=== PATIENT | female | born 1985 | race Caucasian/White ===

== ENCOUNTER → 2019-04-07 16:50 | Outpatient (BNVA) | payer MEDICARE, MEDICAID, SELFPAY | PROVIDERS: Family Provider Social Worker Clinical; PCP Emergency Medicine; Visit Provider Nurse Practitioner Family | DX: G43.909 Migraine, unspecified, not intractable, without status migrainosus (principal); R30.0 Dysuria; R52 Pain, unspecified | CPT/HCPCS: 81003 ==

== ENCOUNTER → 2019-05-01 15:16 | Outpatient (BNVA) | payer MEDICARE, MEDICAID, SELFPAY | PROVIDERS: Family Provider Social Worker Clinical; PCP Emergency Medicine; Referring Provider Nurse Practitioner Family; Visit Provider Specialist | DX: G43.711 Chronic migraine without aura, intractable, with status migrainosus (principal); F44.5 Conversion disorder with seizures or convulsions | CPT/HCPCS: 99204; 99214 ==

== ENCOUNTER → 2019-07-09 07:30 | Outpatient (BNVA) | payer MEDICARE, MEDICAID, SELFPAY | PROVIDERS: Family Provider Social Worker Clinical; PCP Emergency Medicine; Visit Provider Psychiatry & Neurology Psychiatry | DX: F43.12 Post-traumatic stress disorder, chronic (principal); F51.3 Sleepwalking [somnambulism] | CPT/HCPCS: 99213 ==

== ENCOUNTER → 2019-07-29 10:23 | Outpatient (BNVA) | payer MEDICARE, MEDICAID, SELFPAY | PROVIDERS: Family Provider Social Worker Clinical; PCP Emergency Medicine; Visit Provider Counselor Professional | DX: F43.12 Post-traumatic stress disorder, chronic (principal); F51.3 Sleepwalking [somnambulism] | CPT/HCPCS: 90791 ==

== ENCOUNTER → 2019-08-08 14:22 | Outpatient (BNVA) | payer MEDICARE, MEDICAID, SELFPAY | PROVIDERS: Family Provider Social Worker Clinical; PCP Emergency Medicine; Visit Provider Emergency Medicine | DX: M25.532 Pain in left wrist (principal) | CPT/HCPCS: 73110 ==

== ENCOUNTER → 2019-09-24 07:27 | Outpatient (BNVA) | payer MEDICARE, MEDICAID, SELFPAY | PROVIDERS: Family Provider Social Worker Clinical; PCP Emergency Medicine; Visit Provider Psychiatry & Neurology Psychiatry | DX: F43.12 Post-traumatic stress disorder, chronic (principal); F51.3 Sleepwalking [somnambulism] | CPT/HCPCS: 99213 ==

== ENCOUNTER → 2019-12-05 11:22 | Outpatient (BNVA) | payer MEDICARE, MEDICAID, SELFPAY | PROVIDERS: Family Provider Social Worker Clinical; PCP Emergency Medicine; Visit Provider Nurse Practitioner Family | DX: J06.9 Acute upper respiratory infection, unspecified (principal); Z20.828 Contact with and (suspected) exposure to other viral communicable diseases | CPT/HCPCS: 87635 ==

== ENCOUNTER → 2019-12-10 07:43 | Outpatient (BNVA) | payer MEDICARE, MEDICAID, SELFPAY | PROVIDERS: Family Provider Social Worker Clinical; PCP Emergency Medicine; Visit Provider Psychiatry & Neurology Psychiatry | DX: F43.12 Post-traumatic stress disorder, chronic (principal); F51.3 Sleepwalking [somnambulism]; Z79.899 Other long term (current) drug therapy; F44.5 Conversion disorder with seizures or convulsions; F50.2 Bulimia nervosa; F32.9 Major depressive disorder, single episode, unspecified | CPT/HCPCS: 90792 ==

== ENCOUNTER → 2019-12-17 12:53 | Outpatient (BNVA) | payer MEDICARE, MEDICAID, SELFPAY | PROVIDERS: Family Provider Social Worker Clinical; PCP Emergency Medicine; Visit Provider Psychiatry & Neurology Psychiatry | DX: Z79.899 Other long term (current) drug therapy (principal) | CPT/HCPCS: 80061; 83036 ==

== ENCOUNTER → 2019-12-31 07:31 | Outpatient (BNVA) | payer MEDICARE, MEDICAID, SELFPAY ==
[2019-12-23 16:26] VITALS: BP 136/98; BMI 56.1
== END ==
PROVIDERS: Family Provider Social Worker Clinical; PCP Emergency Medicine; Visit Provider Psychiatry & Neurology Psychiatry
DX: F43.12 Post-traumatic stress disorder, chronic (principal); F51.3 Sleepwalking [somnambulism]; Z79.899 Other long term (current) drug therapy; F44.5 Conversion disorder with seizures or convulsions; F50.2 Bulimia nervosa
CPT/HCPCS: 99214

== ENCOUNTER → 2020-01-23 07:16 | Outpatient (BNVA) | payer MEDICARE, MEDICAID, SELFPAY ==
[2019-12-23 16:26] VITALS: BP 136/98; BMI 56.1
== END ==
PROVIDERS: Family Provider Social Worker Clinical; PCP Emergency Medicine; Visit Provider Psychiatry & Neurology Psychiatry
DX: F43.12 Post-traumatic stress disorder, chronic (principal); F51.3 Sleepwalking [somnambulism]; Z79.899 Other long term (current) drug therapy; F44.5 Conversion disorder with seizures or convulsions; F50.2 Bulimia nervosa; F32.9 Major depressive disorder, single episode, unspecified
CPT/HCPCS: 99214

== ENCOUNTER → 2020-03-18 09:25 | Outpatient (BNVA) | payer MEDICARE, MEDICAID, SELFPAY ==
[2019-12-23 16:26] VITALS: BP 136/98; BMI 56.1
== END ==
PROVIDERS: Family Provider Social Worker Clinical; PCP Emergency Medicine; Visit Provider Psychiatry & Neurology Psychiatry
DX: F32.9 Major depressive disorder, single episode, unspecified (principal); F43.12 Post-traumatic stress disorder, chronic; G47.10 Hypersomnia, unspecified; G43.019 Migraine without aura, intractable, without status migrainosus; F50.2 Bulimia nervosa; F44.5 Conversion disorder with seizures or convulsions
CPT/HCPCS: 99215

== ENCOUNTER → 2020-04-24 14:11 | Outpatient (BNVA) | payer MEDICARE, MEDICAID, SELFPAY ==
[2019-12-23 16:26] VITALS: BP 136/98; BMI 56.1
== END ==
PROVIDERS: Family Provider Social Worker Clinical; PCP Emergency Medicine; Visit Provider Nurse Practitioner Family
DX: R39.9 Unspecified symptoms and signs involving the genitourinary system (principal); N39.0 Urinary tract infection, site not specified
CPT/HCPCS: 81000; 87086

== ENCOUNTER 2020-04-27 20:00 | Outpatient (CLI) | payer MEDICARE, MEDICAID, SELFPAY ==
[2019-12-23 16:26] VITALS: BP 136/98; BMI 56.1
== END 2020-04-27 20:01 | disposition home or self-care (01) ==
LOC: SLEEP 04-28 08:32
PROVIDERS: Family Provider Social Worker Clinical; PCP Emergency Medicine; Visit Provider Psychiatry & Neurology Psychiatry
DX: G47.10 Hypersomnia, unspecified (principal); R06.83 Snoring; G47.33 Obstructive sleep apnea (adult) (pediatric)
CPT/HCPCS: 95810

== ENCOUNTER → 2020-05-13 07:58 | Outpatient (BNVA) | payer MEDICARE, MEDICAID, SELFPAY ==
[2019-12-23 16:26] VITALS: BP 136/98; BMI 56.1
== END ==
PROVIDERS: Family Provider Social Worker Clinical; PCP Emergency Medicine; Visit Provider Psychiatry & Neurology Psychiatry
DX: F43.12 Post-traumatic stress disorder, chronic (principal); F51.3 Sleepwalking [somnambulism]; F32.9 Major depressive disorder, single episode, unspecified; F50.2 Bulimia nervosa; F44.5 Conversion disorder with seizures or convulsions
CPT/HCPCS: 99215

== ENCOUNTER → 2020-06-10 08:12 | Outpatient (BNVA) | payer MEDICARE, MEDICAID, SELFPAY ==
[2019-12-23 16:26] VITALS: BP 136/98; BMI 56.1
== END ==
PROVIDERS: Family Provider Social Worker Clinical; PCP Emergency Medicine; Visit Provider Psychiatry & Neurology Psychiatry
DX: F32.9 Major depressive disorder, single episode, unspecified (principal); F43.12 Post-traumatic stress disorder, chronic; F51.3 Sleepwalking [somnambulism]; F50.2 Bulimia nervosa; G47.33 Obstructive sleep apnea (adult) (pediatric); F44.5 Conversion disorder with seizures or convulsions
CPT/HCPCS: 99214

== ENCOUNTER → 2020-06-11 11:01 | Outpatient (BNVA) | payer MEDICARE, MEDICAID, SELFPAY ==
[2019-12-23 16:26] VITALS: BP 136/98; BMI 56.1
== END ==
PROVIDERS: Family Provider Social Worker Clinical; PCP Emergency Medicine; Visit Provider Nurse Practitioner Family
DX: Z20.822 Contact with and (suspected) exposure to COVID-19 (principal)
CPT/HCPCS: 87635

== ENCOUNTER → 2020-08-03 07:25 | Outpatient (BNVA) | payer MEDICARE, MEDICAID, SELFPAY ==
[2019-12-23 16:26] VITALS: BP 136/98; BMI 56.1
== END ==
PROVIDERS: Family Provider Social Worker Clinical; PCP Emergency Medicine; Visit Provider Psychiatry & Neurology Psychiatry
DX: F43.12 Post-traumatic stress disorder, chronic (principal); F44.5 Conversion disorder with seizures or convulsions; F51.3 Sleepwalking [somnambulism]; F32.9 Major depressive disorder, single episode, unspecified; G47.33 Obstructive sleep apnea (adult) (pediatric); F50.2 Bulimia nervosa
CPT/HCPCS: 99214

== ENCOUNTER → 2020-11-22 09:44 | Outpatient (BNVA) | payer MEDICARE, MEDICAID, SELFPAY ==
[2019-12-23 16:26] VITALS: BP 136/98; BMI 56.1
== END ==
PROVIDERS: Family Provider Social Worker Clinical; PCP Emergency Medicine; Visit Provider Nurse Practitioner Family
DX: Z20.822 Contact with and (suspected) exposure to COVID-19 (principal); R30.0 Dysuria
CPT/HCPCS: 87635

== ENCOUNTER 2020-11-27 10:44 | Inpatient (IN) | payer MEDICARE, MEDICAID, SELFPAY ==
[2019-12-23 16:26] VITALS: BP 136/98; BMI 56.1
[2020-11-27] VITALS (46 sets, daily range): BP systolic 96–133; BP diastolic 62–96; PULSE 66–109; RESP 17–65; TEMP 36.7–37.1; O2SAT 89–97; BMI 52.4
--- NOTE | 2020-11-27 11:06 | ECG_ITS ---
[facility] Test Date: 2020-11-27 Pat Name: Verito Harmon Department: Room: Gender: Female Clinical Applications Specialist: : 1985 Requested By: Yinka Ramires Order Number: [id number] Malu MD: David Chavez M.D. Measurements Intervals [place] Rate: 97 P: 55 AL: 132 QRS: 6 QRSD: 86 T: 4 QT: 308 QTc: 393 Interpretive Statements SINUS RHYTHM No previous ECG available for comparison Electronically Signed On 11-27-2020 20:59:05 CDT by David Chavez M.D. [id number]
--- NOTE | 2020-11-27 11:06 | XRR_ITS ---
PROCEDURE INFORMATION: Exam: XR Chest Exam date and time: 11/27/2020 11:06 AM Age: 35 years old Clinical indication: Device placement; Other: Et and ng; Additional info: Dyspnea TECHNIQUE: Imaging protocol: XR of the chest. Views: 1 view. Total images: 1 COMPARISON: No relevant prior studies available. FINDINGS: Tubes, catheters and devices: An endotracheal tube is present, terminating above the ileana by 3.5 cm. Enteric tube is seen with the tip in the body of the stomach. Lungs: Bilateral patchy airspace densities, favoring pneumonia, possibly atypical pneumonia. Pleural spaces: Unremarkable. No pleural effusion. No pneumothorax. Heart/Mediastinum: Unremarkable. No cardiomegaly. Bones/joints: Unremarkable. XR/XR chest 1V portable [id number] IMPRESSION: 1. An endotracheal tube is present, terminating above the ileana by 3.5 cm. 2. Enteric tube is seen with the tip in the body of the stomach. 3. Bilateral patchy airspace densities, favoring pneumonia, possibly atypical pneumonia.
[2020-11-27] MEDS: dexamethasone 4 mg/mL INJ 6 MG IVP (11:30)
[2020-11-27 11:32] LABS: ABG PCO2 33.1 mmHg (35-45); ABG PH Result 7.43 (7.35-7.45); Arterial Blood Gas Hematocrit 44.2 % (37-47); Base Excess ABG -1.7 mmol/L (-2.0-2.0); Blood Gas Allen Test Pos; Blood Gas Operator Identificat MONRO; Blood Gas Sample Site Radial, left; Blood Gas Sample Type Arterial; HCO3 ABG 21.9 mmol/L (22-26); Oxygen Device NRB; PO2 ABG 58.9 mmHg (80.0-100.0)
--- NOTE | 2020-11-27 11:54 | W.ED.COVID ---
HPI - COVID General: Chief Complaint: Shortness of Breath/Dyspnea Stated Complaint: RESP DISTRESS Time Seen by Provider: 11/27/20 10:45 Triage information: Has fever, cough or shortness of breath. Exposure to COVID + person last 14 days History of Present Illness: HPI Narrative: 35-year-old female tested positive for Covid 5 days ago comes in complaining of severe respiratory distress, she began having symptoms 10 days ago.. She called EMS complaint of shortness of breath on their arrival there she was 68% on room air she was placed on nonrebreather at 10 L/min was in the 90% range. On arrival here she was tachypneic. Put her on a heated high flow and are able to get her oxygen levels up to the mid 90s and her respiratory rate decreased however sharp shortly after that her oxygen saturations decreased again to the mid low 80s she was switched to a BiPAP. As an outpatient she had initially been seen by [facility] or the primary care clinics and started on Zithromax and dexamethasone. complaint: known COVID positive Prior covid testing: yes, results known Prior testing date: 11/22/20 COVID 19 common symptoms: positive fever(s), chills, cough, non-productive cough, productive cough, dyspnea, body aches, nasal congestion, nausea, vomiting and diarrhea COVID 19 other sytmptoms: positive requiring oxygen and respiratory distress; negative chest pain Onset (ago): day(s) Severity: severe and rapidly worsening Pertinent comorbid conditions: hypertension and obesity Treatment prior to arrival: none COVID Results: SARS-CoV-2 RNA (RT-PCR) Detected (NOT DETECTED) A 11/22/20 09:44 11/22/20 Review of Systems Const: Reports: fever(s), chills and body aches ENMT: Reports: nasal congestion Card: Reports: dyspnea on exertion; Denies: chest pain, edema or orthopnea Resp: Reports: dyspnea, productive cough and non-productive cough GI: Reports: nausea, vomiting and diarrhea : Denies: flank pain, difficulty voiding, dysuria, urinary frequency or urinary urgency Skin/Breast: Denies: rash or pruritus PFS ED PFSH: Medical History Bulimia nervosa in remission Chronic migraine without aura, intractable, with status migrainosus Common migraine with intractable migraine Excoriation (skin-picking) disorder Functional neurological symptom disorder with attacks or seizures Hypersomnia Major depressive disorder Migraine Obstructive sleep apnea Other jail (current) drug therapy Post-traumatic stress disorder, chronic Psychiatric care Sleepwalking disorder Suspected COVID-19 virus infection Viral URI with cough Surgical History H/O tubal ligation History of kidney surgery Family History Other CAD (coronary artery disease) Diabetes Hypertension Denies family history of Cancer Stroke Social History Smoking and tobacco status: never smoked Alcohol intake: current Alcohol intake frequency: few times a month Desire information about substance/drug rehabilitation?: No History of recent travel: No Current gender identity: Female Female Reproductive History: Spontaneous abortions: No Physical Exam Const: GENERAL APPEARANCE: cooperative ORIENTATION/CONSCIOUSNESS: Yes awake, Yes oriented to person, Yes oriented to place and Yes oriented to time HENMT: COMMON NORMALS: normocephalic, atraumatic and hearing grossly normal bilaterally HEAD & SCALP: normocephalic and atraumatic Neck/C-Spine: COMMON NORMALS: no JVD Resp: AUSCULTATION: crackles, wheezes and diminished lung sounds Cardio: COMMON NORMALS: no JVD, regular rate, regular rhythm and No murmurs present (Cardio) RATE: regular rate RHYTHM: regular rhythm GI: COMMON NORMALS: Soft to palpation and No hepatosplenomegaly present AUSCULTATION: Yes normoactive bowel sounds PALPATION: Yes Soft to palpation, No Tenderness to palpation present (GI), No Guarding due to palpation present (GI) and Yes No hepatosplenomegaly present Extremity: COMMON NORMALS: normal to inspection, capillary refill normal, no clubbing, cyanosis or edema, no calf tenderness and no pedal edema Neuro: SENSORIUM/ORIENTATION: Yes oriented to person, Yes oriented to place and Yes oriented to time Skin: COMMON NORMALS: no rashes or lesions noted GENERAL SKIN EXAM: no rashes or lesions noted Procedures Central Line Placement Left IJ: Time Out Performed: Yes Patient Placed on Monitor/Pulse Ox: Yes MD Prep: mask, gown and gloves Central Line Prep: Chlorhexidine scrub and sterile drapes applied Ultrasound Used for Placement: Yes Central Line Lumen Inserted: triple Post Procedure: sutured in place, good blood return, all ports aspirated, flushed, capped and sterile dressing applied Post Procedure X-Ray: tip of catheter in good position and no pneumothorax seen Patient Tolerated Procedure: well and no complications Complications: none Intubation Time out performed: Yes sedative: Etomidate Mg Given: 20 paralytic: Succinylcholine Mg Given: 120 Laryngoscope: fiber optic video scope Assist Device Used: fiber optic device ET Tube Size: 8.5 ET Tube Uncuffed: No Tube Secured Depth (cm): 22 Tube Secured Location: teeth Tube Placement Confirmation: visualized tube passing through cords, equal breath sounds bilaterally, no breath sounds over epigastrium and confirmation by capnometry Patient Tolerated Procedure: well Intubation Complications: none Additional Comments: Initially there is a mild complication with getting events set up patient was successfully maintained on [id number] during that time in which she tolerated very well. We were able to correct the issue of the ventilator and transition to the vent with no complications. Course Vital Signs: Vital signs: Vital Signs Temperature 98.1 F 11/27/20 10:50 Pulse Rate 87 11/27/20 15:45 Respiratory Rate 20 H 11/27/20 15:45 Blood Pressure 129/80 11/27/20 15:45 Pulse Oximetry 97 11/27/20 15:45 MDM - COVID MDM Narrative: Medical decision making narrative: Patient rapidly deteriorated see above will transition from my she heated high flow to BiPAP her respiratory rate increased into the upper 70s and she was intubated she still was conscious enough we discussed with her prior to intubating she expressed understanding and was okay with being intubated. Discussed with hospitalist reviewed case orders written. Lab Data: Labs: Lab Results 11/27/20 11/27/20 11/27/20 11:20 12:12 12:12 WBC 8.8 10^3/uL 10^3/ uL (4.0-10.0) RBC 4.96 10^6/uL 10^6 /uL (4.1-5.3) Hgb 14.6 g/dL g/dL (11.5-15.3) Hct 45.4 % % (37.0-47.0) MCV 91.5 fl fl (81-99) MCH 29.4 pg pg (28.0-34.0) MCHC 32.2 g/dL g/dL (30.0-36.0) RDW 13.5 % % (12.1-15.1) Plt Count 242 10^3/cmm 10^3 /cmm (130-400) MPV 10.4 fL fL (7.4-10.4) Neut % (Auto) 83.1 % % Lymph % (Auto) 12.7 % % [place] % (Auto) 3.9 % % Eos % (Auto) 0.0 % % Baso % (Auto) 0.1 % % Neut # (Auto) 7.34 10^3/uL 10^3 /uL (1.8-7.7) Lymph # (Auto) 1.1 10^3/uL 10^3/ uL (0.8-4.8) [place] # (Auto) 0.3 10^3/uL 10^3/ uL (0.2-0.9) Eos # (Auto) 0.0 10^3/uL 10^3/ uL (0.0-0.8) Baso # (Auto) 0.0 10^3/uL 10^3/ uL (0.0-0.1) Nucleated RBC % (a uto) 0 % % Nucleated RBCs # 0.0 /100WBC /100W BC Specimen Type Arterial Sample Site Radial, left ABG pH 7.43 (7.35-7.45) ABG pCO2 33.1 mmHg L mmHg (35-45) ABG pO2 58.9 mmHg L mmHg (80.0-100.0) ABG HCO3 21.9 mmol/L L mmo l/L (22-26) ABG O2 Saturation ABG Base Excess -1.7 mmol/L mmol/ L (-2.0-2.0) Mj Test Pos A-a O2 Gradient Hematocrit 44.2 % % (37-47) Hgb O2 Saturation Carboxyhemoglobin Methemoglobin Total Hemoglobin Ionized Calcium O2 Delivery Device Nrb O2 Liters/Min 15.0 % % Mechanical Rate FiO2 100.0 % % Tidal Volume PEEP Dry Chain Operator ID [place] Sodium Cancelled Potassium Cancelled Chloride Cancelled Carbon Dioxide Cancelled Anion Gap Cancelled BUN Cancelled Creatinine Cancelled GFR Calculation Cancelled Glucose Cancelled Calculated Osmolal ity Cancelled Lactic Acid Calcium Cancelled Total Bilirubin Cancelled AST Cancelled ALT Cancelled Alkaline Phosphata se Cancelled C-Reactive Protein Cancelled Total Protein Cancelled Albumin Cancelled Globulin Cancelled Procalcitonin Cancelled Urine Color Urine Appearance Urine pH Ur Specific Gravit y Urine Protein Urine Glucose (UA) Urine Ketones Urine Blood Urine Nitrate Urine Bilirubin Urine Urobilinogen Ur Leukocyte Vandana ase Urine RBC Urine WBC Ur Squamous Epith Cells Amorphous Sediment Urine Bacteria Urine Mucus 11/27/20 11/27/20 11/27/20 12:12 13:21 13:28 WBC RBC Hgb Hct MCV MCH MCHC RDW Plt Count MPV Neut % (Auto) Lymph % (Auto) [place] % (Auto) Eos % (Auto) Baso % (Auto) Neut # (Auto) Lymph # (Auto) [place] # (Auto) Eos # (Auto) Baso # (Auto) Nucleated RBC % (a uto) Nucleated RBCs # Specimen Type Arterial Sample Site Radial, left ABG pH 7.36 (7.35-7.45) ABG pCO2 39.2 mmHg mmHg (35-45) ABG pO2 55.4 mmHg L mmHg (80.0-100.0) ABG HCO3 22.3 mmol/L mmol/ L (22-26) ABG O2 Saturation 90.3 ABG Base Excess -2.8 mmol/L L mmo l/L (-2.0-2.0) Mj Test Pos A-a O2 Gradient 79.5 mmHg H mmHg (5-10) Hematocrit 46.4 % % (37-47) Hgb O2 Saturation 89.1 % L % (95-100) Carboxyhemoglobin 0.7 %THgb %THgb (0.4-20.1) Methemoglobin 0.7 % % (0.4-1.5) Total Hemoglobin 15.1 g/dL g/dL (12-16) Ionized Calcium 1.2 mmol/L mmol/L (1.1-1.4) O2 Delivery Device Vent O2 Liters/Min Mechanical Rate 18.0 FiO2 100.0 % % Tidal Volume 0.35 PEEP 8.0 cmH20 cmH20 Dry Chain Operator ID Gd Sodium 144.0 mmol/L H mm ol/L (131-143) Potassium 3.8 mmol/L mmol/L (3.5-5.0) Chloride Carbon Dioxide Anion Gap BUN Creatinine GFR Calculation Glucose 112.0 mg/dL mg/dL (70-115) Calculated Osmolal ity Lactic Acid Cancelled Calcium Total Bilirubin AST ALT Alkaline Phosphata se C-Reactive Protein Total Protein Albumin Globulin Procalcitonin Urine Color Yellow (Yellow) Urine Appearance Clear (CLEAR) Urine pH 6 (5-7) Ur Specific Gravit y 1.010 (1.005-1.030) Urine Protein 1+ H (Negative) Urine Glucose (UA) Norm (Normal) Urine Ketones Negative (Negative) Urine Blood Neg (Negative) Urine Nitrate Negative (Negative) Urine Bilirubin Neg (Negative) Urine Urobilinogen 1 mg/dL H mg/dL (Negative) Ur Leukocyte Vandana ase Negative (Negative) Urine RBC None /hpf /hpf (0-2) Urine WBC None /hpf /hpf (0-5) Ur Squamous Epith Cells 0-4 /hpf H /hpf (0-5) Amorphous Sediment Not Reportable Urine Bacteria Trace /hpf /hpf (NONE) Urine Mucus 1+ /hpf /hpf COVID Results: SARS-CoV-2 RNA (RT-PCR) Detected (NOT DETECTED) A 11/22/20 09:44 11/22/20 Critical Care Time Critical Care Time: Critical Care Time: Yes Total Critical Care Time: 20 Attestation: This case had a high probability of a clinically significant, sudden, or life threatening deterioration of this patient's condition which required my full and direct attention, intervention and personal management. Procedures billed separately. Critical care time included initial assessment and reassessment evaluation of labs and imaging discussion with hospitalist and ongoing management of sedation in the emergency room. Discharge Plan Discharge Patient Disposition: Admitted As Inpatient Admit Provider: Sara Oh Coding Level of Care Code ED Lcac Radar Operator/Navigator for g Fwd Exam Comprehensive
--- NOTE | 2020-11-27 12:00 | ECG_ITS ---
[facility] Test Date: 2020-11-27 Pat Name: Verito Harmon Department: Room: [facility] Gender: Female Laundry Route Driver: : 1985 Requested By: Yinka Ramires Order Number: [id number] Malu MD: David Chavez M.D. Measurements Intervals [place] Rate: 104 P: 136 AK: 118 QRS: -3 QRSD: 89 T: -18 QT: 321 QTc: 423 Interpretive Statements ECTOPIC ATRIAL TACHYCARDIA WITH SHORT AK INTERVAL LEFT ATRIAL ENLARGEMENT [-0.15mV P-WAVE IN V1/V2] LOW QRS VOLTAGE IN PRECORDIAL LEADS [QRS DEFLECTION < 1.0 mV IN CHEST LEADS] PATTERN CONSISTENT WITH PULMONARY DISEASE POSSIBLE INFERIOR MYOCARDIAL INFARCTION , OF INDETERMINATE AGE [30 ms Q WAVE IN II/aVF] Compared to ECG 11/27/2020 11:42:13 Short AK interval now present Atrial abnormality now present Low QRS voltage now present Myocardial infarct finding now present Sinus rhythm no longer present Electronically Signed On 11-27-2020 21:13:13 CDT by David Chavez M.D. [id number]
[2020-11-27 12:18] LABS: Basophils % 0.1 %; Hematocrit 45.4 % (37.0-47.0); Hemoglobin 14.6 g/dL (11.5-15.3); Lymphocytes # 1.1 10^3/uL (0.8-4.8); Lymphocytes % 12.7 %; Mean Corpuscular HGB Conc 32.2 g/dL (30.0-36.0); Mean Corpuscular Hemoglobin 29.4 pg (28.0-34.0); Mean Corpuscular Volume 91.5 fl (81-99); Mean Platelet Volume 10.4 fL (7.4-10.4); Monocytes # 0.3 10^3/uL (0.2-0.9); Monocytes % 3.9 %; Neutrophils # 7.34 10^3/uL (1.8-7.7); Neutrophils % 83.1 %; Nucleated Red Blood Cells % 0 %; Platelet Count 242 10^3/cmm (130-400); Red Blood Count 4.96 10^6/uL (4.1-5.3); Red Cell Distribution Width 13.5 % (12.1-15.1); White Blood Count 8.8 10^3/uL (4.0-10.0)
--- NOTE | 2020-11-27 13:33 | PM.HP ---
Providers/Chief Complaint Primary Care Provider: LUCAS Tristan Chief Complaint: RESP DISTRESS History of Present Illness Verito Harmon is a 35 year old female who tested positive with Covid PCR on 11/22 presented today for worsening of her respiratory distress. I have tried to get in touch with the family, tried multiple numbers however it is going straight to voicemail. No one has called the ER as well. Most of the information has been taken from collaterals. Patient symptoms started 10 days ago with shortness of breath and fever and she tested 5 days ago. Today EMS was called for worsening of shortness of breath. When EMS arrived she was saturating 68% on room air, she does have history of sleep apnea, she was put on 10 L oxygen mask, she was transitioned up to heated high flow and then BiPAP to decrease work of breathing however secondary to tachypnea she was intubated in the ER, Secondary to her BMI not an ECMO candidate when I discussed transfer to [facility], will admit to ICU start proning, She is on FiO2 100% saturating 92% PaO2 around 50 Dr[address] to [address] left IJ, white count 8.8, D-dimer is pending, procalcitonin, BMP is pending Review of Systems General: Reports: ROS unobtainable due to endotracheal tube Medications/Allergies Home Medications Medication Instructions Recorded Confirmed Last Taken Type clonazepam 1 mg tablet 1 mg PO BID #60 tab 08/03/20 11/27/20 Unknown Rx vilazodone 40 mg tablet 40 mg PO DAILY #30 tab 08/03/20 11/27/20 Unknown Rx dextromethorphan-guaifenesin 10 15 ml PO BID PRN 11/22/20 11/27/20 Unknown History mg-200 mg/15 mL oral liquid azithromycin 250 mg tablet See Rx Instructions PO .COMPLEX #6 11/24/20 11/27/20 Unknown Rx tab dexamethasone 2 mg tablet 6 mg PO DAILY 8 Days #24 tab 11/24/20 11/27/20 Unknown Rx Allergies Allergy/AdvReac Type Severity Reaction Status Date / Time benzonatate Allergy unknown Verified 11/22/20 09:36 [From Tessalon Perles] prochlorperazine Allergy unknown Verified 11/22/20 09:36 [From Compazine] amoxicillin [From Augmentin] AdvReac unknown Verified 11/22/20 09:36 clavulanic acid AdvReac unknown Verified 11/22/20 09:36 [From Augmentin] PFSH Acute PFSH: Medical History Bulimia nervosa in remission Chronic migraine without aura, intractable, with status migrainosus Common migraine with intractable migraine Excoriation (skin-picking) disorder Functional neurological symptom disorder with attacks or seizures Hypersomnia Major depressive disorder Migraine Obstructive sleep apnea Other termite exterminator helper (current) drug therapy Post-traumatic stress disorder, chronic Psychiatric care Sleepwalking disorder Suspected COVID-19 virus infection Viral URI with cough Surgical History H/O tubal ligation History of kidney surgery Family History Other CAD (coronary artery disease) Diabetes Hypertension Denies family history of Cancer Stroke Social History Smoking and tobacco status: never smoked Alcohol intake: current Alcohol intake frequency: few times a month Desire information about substance/drug rehabilitation?: No History of recent travel: No Current gender identity: Female Female Reproductive History: Spontaneous abortions: No Vitals/I&O/Wt Last Vital Signs Temp 98.1 F 11/27/20 10:50 Pulse 99 11/27/20 11:57 Resp 24 H 11/27/20 13:00 BP 109/78 11/27/20 10:50 Pulse Ox 90 11/27/20 13:00 Weight last 48 hrs Weight 130.181 kg Physical Exam Narrative: EXAM NARRATIVE: Morbidly obese female Intubated and sedated ET tube size 8 secured at 24 cm teeth bite ER physician was placing left IJ in Trendelenburg position No active signs of congestive heart failure Multiple skin tattoos Assisted bilateral breath sounds Hemodynamically stable saturating 89 to 90% Lower extremity no edema Distended abdomen visceral obesity Neuro exam limited Data : 11/27/20 12:12 11/27/20 14:11 A&P Assessment and plan (1) COVID-19: Status: Acute (2) Hypoxia: Status: Acute (3) ARDS (adult respiratory distress syndrome): Status: Acute (4) Obesity: Status: Acute Additional A&P Information Acute hypoxia requiring mechanical ventilation for COVID-19 pneumonia P to F ratio 50, meets criteria for severe ARDS Morbid obesity Most of the labs are pending from the ER She does have underlying sleep apnea as well Intubated and sedated Start proning, will do at least 4 cycles to see if she is responsive will request blood gas before and after proning for her 8 hours of supine session requested dietary consult for tube feeding I will keep her on Lasix to keep her in negative balance Start Nimbex I would cover her empirically for DVT and PE with Lovenox Start remdesivir, Decadron, baricitinib Has tried multiple times to get in touch with the family, it is going straight to voicemail, no one has called the hospital as well Admit to ICU Not a candidate of ECMO because of high BMI No education and training coordinator coverage over the weekend, Dr. Nash is coming on Sunday We will do echo to know more about her right ventricular ejection fraction Full code Start tube feed DVT prophylaxis start therapeutic regimen of Lovenox Attestations Medical Necessity Statement*: Anticipating stay in the hospital cross more than 2 midnights Time Spent in Patient Care: Greater than 35 minutes Coding Level of Care Code Acute Diesel Inspector for Sarag Fwd Diagnoses COVID-19 U07.1 Hypoxia R09.02 ARDS (adult respiratory distress syndrome) J80 Obesity E66.9
[2020-11-27 13:44] LABS: ABG PCO2 39.2 mmHg (35-45); ABG PH Result 7.36 (7.35-7.45); Arterial Blood Gas Hematocrit 46.4 % (37-47); Base Excess ABG -2.8 mmol/L (-2.0-2.0); Blood Gas Allen Test Pos; Blood Gas Sample Type Arterial; Carboxyhemoglobin 0.7 %THgb (0.4-20.1); HCO3 ABG 22.3 mmol/L (22-26); HGB O2 Sat 89.1 % (95-100); Ionized Calcium Level - ABG 1.2 mmol/L (1.1-1.4); Methemoglobin 0.7 % (0.4-1.5); Oxygen Saturation ABG 90.3; PO2 ABG 55.4 mmHg (80.0-100.0); Potassium Level - ABG 3.8 mmol/L (3.5-5.0); Total Hemoglobin 15.1 g/dL (12-16)
[2020-11-27 13:46] LABS: Alveolar-Arterial Oxygen Gradi 79.5 mmHg (5-10); Blood Gas Operator Identificat GD; Blood Gas Sample Site Radial, left; Blood Gas Tidal Volume 0.35; Oxygen Device VENT
[2020-11-27] MEDS: propofol 1,000 MG/100 ML INJ 3.91 MG IV (14:03)
--- NOTE | 2020-11-27 14:21 | PC.NURSE ---
1220 Pt moved from 8 to room 11 for intubation after failed bipap 1225 IV placed by ANDREW Jaimes at L AC 1231 RT at bedside for prep for intubation provider at bedside RNx2 1231 Etomidate 20mg given and Succ 120mg given to L AC by ANDREW Connolly drawn up by LES, RN 1232 ET placed 8Fr at 22 at LIp and confirmed by change in color and bilateral breast sounds with XRay order for confirmation HR 123, SP02 99% with BP 180/125. Pt fighting the tube and tearing noted. 1235 Provider notified of pt's pulling on tube and tearing. Received order for Propofol 100mg and Vercuronium 10mg given by ANDREW Jaimes mixed and drawn up by LES, rn 1240 Received order for 2nd dose of Propofol 100mg given by Fiona, ANDREW 1242 Pt appears to be resting and sp02 90-91% improved 1245 IV gtt started see MAR Fentanyl and Versed. 1250 2nd IV started to left hand 20g 1300 Verbal order to start Propofol for pulling on ET RT at bedside. Temporary restraints placed till medication Propofol gtt started. RT at bedside noted SP02 change 89-90% and pt pulling on tube. notified provider of change pt tearing 1400 CL placed by provider Propofol gtt started
[2020-11-27] MEDS: propofol 1,000 MG/100 ML INJ 11.72 MG IV (14:40)
[2020-11-27 14:42] LABS: Lactic Sepsis W/Reflex 1.1 mmol/L (0.5-2.2)
--- NOTE | 2020-11-27 14:45 | PC.NURSE ---
Verbal order received for medication for Central line placement 1340 Versed rate change to 6mg/hr 1347 Fentanyl rate change to 10mcg/ml 1410 Propofol bolus given 100 mcg over 3 minutes with rate change after bolus 1415 Propofol rate changed to 15 mcg/kg/min CL placed. XRay called for placement check 1445 Propofol bolus given 100mcg over 3 minutes with rate change after bolus 1450 Propofol rate change to 25 mcg/kg/min with rate 19.5ml/hr
[2020-11-27 14:53] LABS: NT Pro B Type Natriuretic Pept 198 pg/mL (0-125); Procalcitonin 0.09 ng/mL (0-0.5)
--- NOTE | 2020-11-27 14:54 | XRR_ITS ---
PROCEDURE INFORMATION: Exam: XR Chest Exam date and time: 11/27/2020 2:54 PM Age: 35 years old Clinical indication: Device placement; Other: Central line placement TECHNIQUE: Imaging protocol: XR of the chest. Views: 1 view. COMPARISON: CR (CHEST, ) 11/27/2020 12:34 PM FINDINGS: Tubes, catheters and devices: There is an enteric tube, the tip of the enteric tube is not included in the image. However, the tube is seen extending into the stomach. There is an endotracheal tube with the tip 3.5 cm above the ileana. Interval placement of a left internal jugular central line with the tip in the lower right atrium. Lungs: Diffuse, mild interstitial alveolar opacities are stable. There is mild improvement of alveolar airspace disease in the right upper lobe and left lower lobe however, suggesting partial resolution of atelectasis or pneumonia. Pleural spaces: No pleural effusion. No pneumothorax. Heart/Mediastinum: Stable mild enlargement of the cardiac silhouette. Mediastinal contours are unremarkable. Bones/joints: Unremarkable for age. XR/XR chest 1V portable [id number] IMPRESSION: 1. Diffuse, mild interstitial alveolar opacities are stable. There is mild improvement of alveolar airspace disease in the right upper lobe and left lower lobe however, suggesting partial resolution of atelectasis or pneumonia. Recommend clinical correlation. Recommend followup chest x-ray to ensure resolution. 2. Interval placement of a left internal jugular central line with the tip in the lower right atrium. 3. Incidental/nonacute findings are listed in the report.
[2020-11-27 15:04] LABS: Alanine Aminotransferase 35 U/L (0-33); Albumin Level 3.2 g/dL (3.5-5.2); Alkaline Phosphatase 46 IU/L (35-105); Blood Urea Nitrogen 10 mg/dL (6-20); C Reactive Protein 61.5 mg/L (0.0-4.9); Calcium 8.3 mg/dL (8.5-10.5); Carbon Dioxide 17 mmol/L (22-29); Chloride 105 mmol/L (98-107); Globulin 4.1 g/dL (1.3-4.6); Glomerular Filtration Rate 81.2 mL/min (90-130); Glucose 109 mg/dL (65-115); Osmolality Calculated 282 mOsm/kg (285-295); Sodium 136 mmol/L (136-145); Total Bilirubin 0.7 mg/dL (0.15-1.2); Total Protein 7.3 g/dL (6.6-8.7)
[2020-11-27 15:09] LABS: Aspartate Amino Transferase 59 U/L (0-32)
[2020-11-27 15:47] LABS: Add Urine Microscopic? YES; Bilirubin Urine Neg (Negative); Blood Urine Neg (Negative); Glucose Urine UA Norm (Normal); Ketones Urine Negative (Negative); Leukocyte Esterase Urine Negative (Negative); Nitrate Urine Negative (Negative); Protein Urine 1+ (Negative); Urine Appearance Clear (CLEAR); Urine Color Yellow (Yellow); Urobilinogen Urine 1 mg/dL (Negative); pH Urine 6 (5-7)
[2020-11-27 15:48] LABS: Bacteria Urine TRACE /hpf; Squamous Epithelial Cell Urine 0-4 /hpf (0-5)
[2020-11-27 15:49] LABS: Add Urine Culture? No; Mucus Urine 1+ /hpf
--- NOTE | 2020-11-27 15:58 | PC.NURSE ---
Report to ANDREW Fowler
--- NOTE | 2020-11-27 17:15 | PC.NURSE ---
Dr Oh notified: Pt's mother and daughter here. Pt has a BMI of 52, proning for BMI over [address] Sky'd not proning.
--- NOTE | 2020-11-27 17:22 | CTR_ITS ---
PROCEDURE INFORMATION: Exam: CTA Chest With Contrast Exam date and time: 11/27/2020 5:22 PM Age: 35 years old Clinical indication: Shortness of breath; Patient HX: Covid, resp failure, PT intubated. ; Additional info: Covid/resp failure TECHNIQUE: Imaging protocol: Computed tomographic angiography of the chest with contrast. 3D rendering (Not supervised by radiologist): MIP and/or 3D reconstructed images were created by the technologist. Radiation optimization: All CT scans at this facility use at least one of these dose optimization techniques: automated exposure control; mA and/or kV adjustment per patient size (includes targeted exams where dose is matched to clinical indication); or iterative reconstruction. Contrast material: OMNI 350; Contrast volume: 56 ml; Contrast route: INTRAVENOUS (IV); COMPARISON: CR (CHEST, ) 11/27/2020 3:01 PM RADIATION DOSE METRICS: Total DLP (mGy-cm): 520.49 FINDINGS: Limitations: Streak artifact from the patient's arms which can limit evaluation. Tubes, catheters and devices: There is an endotracheal tube with the tip 3.4 cm above the ileana. There is an enteric tube with the tip in the body of the stomach. Left internal jugular central line with the tip in the lower right atrium. Pulmonary arteries: No filling defects in the pulmonary arteries to suggest pulmonary embolism. Aorta: No evidence for aortic aneurysm or aortic dissection. Lungs: Tracheobronchial structures are patent. Multiple, bilateral areas of ground-glass opacification and crazy paving in the lungs bilaterally. Findings are consistent with COVID-19 pneumonia. Alveolar airspace disease with air bronchograms in the upper and lower lobes bilaterally as well, superimposed bacterial pneumonia cannot be ruled out. No pulmonary parenchymal nodules or masses. Pleural spaces: No pneumothorax. No pleural effusion. Heart: Mild enlargement of the heart. Mediastinal space: The esophagus is unremarkable. No mediastinal hematoma. No pneumomediastinum. Lymph nodes: No lymphadenopathy. Liver: Diffuse, moderately decreased density in the visualized liver. Findings are consistent with moderate fatty infiltration. Gallbladder and bile ducts: The visualized gallbladder is unremarkable. No dilatation of the visualized bile ducts. Pancreas: The visualized pancreas is unremarkable. No pancreatic ductal dilatation. Spleen: The visualized spleen is unremarkable. Adrenal glands: The right adrenal gland is unremarkable. The visualized left adrenal gland is unremarkable. Kidneys and ureters: The visualized right and left kidneys are unremarkable. Bones/joints: No acute fracture. No dislocation. Soft tissues: No acute abnormality in the extrathoracic soft tissues. CT/CT angio chest PE protcl [id number] IMPRESSION: 1. Multiple, bilateral areas of ground-glass opacification and crazy paving in the lungs bilaterally. Findings are consistent with COVID-19 pneumonia. Alveolar airspace disease with air bronchograms in the upper and lower lobes bilaterally as well, superimposed bacterial pneumonia cannot be ruled out. Recommend clinical correlation. Recommend followup chest imaging to insure resolution of these findings. 2. No evidence for pulmonary embolism. 3. Mild cardiomegaly. 4. There is an endotracheal tube with the tip 3.4 cm above the ileana. 5. There is an enteric tube with the tip in the body of the stomach. 6. Left internal jugular central line with the tip in the lower right atrium. 7. Moderate fatty infiltration of the visualized liver. Radiation Dose CTDIVOL = (mGy): DLP = 520.49 (mGy-cm)
[2020-11-27] MEDS: propofol 1,000 MG/100 ML INJ 31.24 MG IV (17:28)
[2020-11-27] MEDS: ascorbic acid 500 mg Tablet 1000 MG PO (17:28)
[2020-11-27] MEDS: remdesivir 200 MG in sodium chloride 0.9% (100 ml) 60 ML 100 MG IV (17:29)
--- NOTE | 2020-11-27 18:05 | PC.NURSE ---
Dr Oh updated on FIO2 of 100%and pt maintaining O2 sats of 97%. Per Dr akins on paralytic, it is not necessary to paralysis pt at this time. She is maintaining her oxygenation.
[2020-11-27] MEDS: ipratropium-albuterol 3 mL Neb INHALATION (20:00)
[2020-11-27] MEDS: budesonide 0.5 mg/2 mL Neb INHALATION (20:00)
--- NOTE | 2020-11-27 20:10 | PC.NURSE ---
Shift Note: Pt intubated and sedated. Arrived to ICU at 1617. She has Fentanyl, Versed and Propofol infusing. Frequent safety and comfort rounds continue. Orders and/or nursing care completed as indicated. Patient monitored for response to intervention and treatment(s). Education provided includes Vent, Remdesivir, sedation medications. Patient and/or licensing representative Verbalized understanding. . Will continue to monitor.
[2020-11-27 20:35] LABS: Glucose Point of Care 154 mg/dL (70-110)
[2020-11-27 20:53] LABS: ABG PCO2 43.4 mmHg (35-45); ABG PH Result 7.34 (7.35-7.45); Arterial Blood Gas Hematocrit 49.8 % (37-47); Base Excess ABG -2.8 mmol/L (-2.0-2.0); Blood Gas Allen Test Pos; Blood Gas Operator Identificat JB; Blood Gas Sample Site Radial, right; Blood Gas Sample Type Arterial; Blood Gas Tidal Volume 0.35; HCO3 ABG 23.2 mmol/L (22-26); Oxygen Device VENT; PO2 ABG 90.9 mmHg (80.0-100.0)
[2020-11-27] MEDS: propofol 1,000 MG/100 ML INJ 27.34 MG IV ×2 (21:01→23:51)
[2020-11-27] MEDS: enoxaparin 30 mg/0.3 mL Syringe SUBCUT (21:09)
[2020-11-27] MEDS: enoxaparin 100 mg/mL Syringe SUBCUT (21:09)
[2020-11-27] MEDS: iohexol 350 mg/mL 100 mL Btl IV (22:55)
[2020-11-28] VITALS (67 sets, daily range): BP systolic 70–120; BP diastolic 36–75; PULSE 62–103; RESP 20–29; TEMP 36.4–36.9; O2SAT 84–95
[2020-11-28 03:04] LABS: Glucose Point of Care 148 mg/dL (70-110)
[2020-11-28] MEDS: ipratropium-albuterol 3 mL Neb INHALATION ×4 (03:07→20:14)
[2020-11-28] MEDS: propofol 1,000 MG/100 ML INJ 27.34 MG IV (03:18)
[2020-11-28 03:58] LABS: Hemoglobin 12.4 g/dL (11.5-15.3); Lymphocytes # 0.9 10^3/uL (0.8-4.8); Lymphocytes % 17.3 %; Mean Corpuscular HGB Conc 31.8 g/dL (30.0-36.0); Mean Corpuscular Hemoglobin 29.4 pg (28.0-34.0); Mean Corpuscular Volume 92.4 fl (81-99); Mean Platelet Volume 10.8 fL (7.4-10.4); Monocytes # 0.3 10^3/uL (0.2-0.9); Monocytes % 5.1 %; Neutrophils # 4.06 10^3/uL (1.8-7.7); Neutrophils % 77.4 %; Nucleated Red Blood Cells % 0 %; Platelet Count 219 10^3/cmm (130-400); Red Blood Count 4.22 10^6/uL (4.1-5.3); Red Cell Distribution Width 13.6 % (12.1-15.1); White Blood Count 5.3 10^3/uL (4.0-10.0)
--- NOTE | 2020-11-28 04:12 | XRR_ITS ---
PROCEDURE INFORMATION: Exam: XR Chest Exam date and time: 11/28/2020 4:12 AM Age: 35 years old Clinical indication: Device placement; Ett placement (vent status); Patient HX: PT covid+, intubated; Additional info: Desat on vent. TECHNIQUE: Imaging protocol: XR of the chest. Views: 1 view. Total images: 1 COMPARISON: CR (CHEST, ) 11/27/2020 3:01 PM FINDINGS: Tubes, catheters and devices: Tubes and catheters are unchanged from the prior exam. Lungs: Bilateral pulmonary opacities are again noted with the right-sided opacities showing interval worsening. Pleural spaces: Unremarkable. No pleural effusion. No pneumothorax. Heart/Mediastinum: Heart size is stable when compared to the prior exam. Bones/joints: Osseous structures are unchanged from the prior exam. XR/XR chest 1V portable [id number] IMPRESSION: 1. Tubes and catheters are unchanged from the prior exam. 2. Bilateral pulmonary opacities are again noted with the right-sided opacities showing interval worsening.
[2020-11-28 04:21] LABS: Anion Gap 14.3 (5-19); Blood Urea Nitrogen 13 mg/dL (6-20); C Reactive Protein 100.2 mg/L (0.0-4.9); Calcium 8.2 mg/dL (8.5-10.5); Carbon Dioxide 24 mmol/L (22-29); Chloride 107 mmol/L (98-107); Glomerular Filtration Rate 81.2 mL/min (90-130); Glucose 141 mg/dL (65-115); Magnesium 2.3 mg/dL (1.7-2.3); Osmolality Calculated 294 mOsm/kg (285-295); Potassium 4.3 mmol/L (3.5-5.1); Sodium 141 mmol/L (136-145)
[2020-11-28 04:28] LABS: Procalcitonin 0.09 ng/mL (0-0.5)
[2020-11-28] MEDS: FUROsemide 10 mg/mL SDV 4mL 40 MG IVP (05:01)
[2020-11-28 05:23] LABS: ABG PH Result 7.41 (7.35-7.45); Arterial Blood Gas Hematocrit 45.5 % (37-47); Base Excess ABG -1.4 mmol/L (-2.0-2.0); Blood Gas Allen Test Pos; Blood Gas Operator Identificat JB; Blood Gas Sample Site Radial, right; Blood Gas Sample Type Arterial; Blood Gas Tidal Volume 0.35; HCO3 ABG 22.7 mmol/L (22-26); Oxygen Device VENT
[2020-11-28] MEDS: enoxaparin 30 mg/0.3 mL Syringe SUBCUT ×2 (06:43→18:02)
[2020-11-28] MEDS: enoxaparin 100 mg/mL Syringe SUBCUT ×2 (06:43→18:02)
[2020-11-28] MEDS: propofol 1,000 MG/100 ML INJ 31.24 MG IV (06:57)
[2020-11-28 08:06] LABS: Glucose Point of Care 124 mg/dL (70-110)
--- NOTE | 2020-11-28 08:39 | PC.NURSE ---
Dr. Oh at bedside order placed to give IVF bolus with noted hypotension. Discussed events of the night and increased pulmonary congestion per chest xray this am. decided to hold IVF and start levophed at this time. will closely monitor plans to attempt to wean FiO2 today
[2020-11-28] MEDS: budesonide 0.5 mg/2 mL Neb INHALATION ×2 (08:57→20:14)
[2020-11-28] MEDS: ascorbic acid 500 mg Tablet 1000 MG PO ×2 (09:24→18:01)
[2020-11-28] MEDS: cholecalciferol (vitamin D3) 1,000 unit Tablet 2000 UNIT PO (09:24)
[2020-11-28] MEDS: FUROsemide 10 mg/mL SDV 2mL 20 MG IVP (09:24)
[2020-11-28] MEDS: pantoprazole 40 mg SDV IVP (09:24)
[2020-11-28] MEDS: zinc gluconate 50 mg Tablet PO (09:24)
[2020-11-28] MEDS: sennosides-docusate Tablet 1 TAB PO (09:24)
[2020-11-28] MEDS: propofol 1,000 MG/100 ML INJ 15.62 MG IV ×3 (11:18→18:00)
[2020-11-28] MEDS: dexamethasone 10 mg/mL INJ 6 MG IVP (11:19)
[2020-11-28 11:43] LABS: Glucose Point of Care 106 mg/dL (70-110)
--- NOTE | 2020-11-28 14:14 | PC.RESP ---
RT Shift Note Frequent safety and respiratory rounds continue. Orders completed as indicated. Patient monitored pre and post treatments throughout shift. Patient [Did.] tolerate treatments appropriately. Condition [DidNotChange]. Patient and/or branch sales and service representative educated on respiratory treatment and medications. Patient and/or branch sales and service representative [unable to comprehend]. Will continue to monitor patient progress.
--- NOTE | 2020-11-28 15:33 | P.PN_ITS ---
Subjective Subjective: Interval history: Patient was evaluated multiple times today Did talk with [facility] printing machine mechanic, he deemed her not a suitable candidate for ECMO however case was presented in detail cut off for ECMO at their facility BMI 45 and less Overnight events noted, patient desaturated multiple times when she was taken for CT scanning Cyanotic appearance also reported by the nursing staff This morning p.o. 205 on 100% FiO2 She was hypotensive, she was started on levo, levo was running at 2 She received Lasix overnight, overnight Was notified regarding no urine output, as soon as Lasix was given she put out 1200 mL Requested respite therapist to go up on PEEP to make it 14 if blood pressure allows She has remained afebrile Repeat chest x-ray showing bilateral infiltrates worsening on right side, increased vascular marking, Plan to add Zosyn for possible aspiration pneumonitis CTA ruled out PE endotracheal tube 3.4 cm above ileana Patient is riding the vent no dyssynchronous breathing noted, held off on paralytics for now not a candidate of proning Versed at 3 Propofol at 40, fentanyl at 100 Levo at 2 Vitals/I&O/Wt Last Vital Signs Temp 97.9 F 11/28/20 12:00 Pulse 103 H 11/28/20 15:00 Resp 21 H 11/28/20 14:11 BP 105/58 11/28/20 15:00 Pulse Ox 90 11/28/20 15:00 11/28/20 11/28/20 11/28/20 06:59 14:59 22:59 Intake Total 621.786 / 871.578 298.629 / 298.629 Output Total 650 / 775 Balance -28.214 / 96.578 298.629 / 298.629 Weight last 48 hrs Weight 130.181 kg Physical Exam Narrative: EXAM NARRATIVE: Patient intubated and sedated FiO2 75%, saturation 94% Hemodynamically stable Bilateral assisted breath sounds with crackles at the bases Soft abdomen bowel sounds present Lower symmetry no edema Multiple skin tattoos Neuro exam limited Pinpoint pupils No sign of cellulitis Urinary Catheter Management^: Edwards: Cath Placed During This Visit: yes Reason for Continuing Indwelling Catheter: Accurate Measurement of Urinary Output in Critically Ill Patients Urinary Catheter Date of Insertion: 11/27/20 Data : 11/28/20 03:00 11/28/20 03:00 Micro: Microbiology 11/27/20 15:32 MRSA Culture - Final Nose 11/27/20 13:00 Gram Stain - Final Sputum - Endotracheal Tube Aspirate Sputum Culture - Preliminary 11/27/20 20:00 Bacterial Antigens - Final Urine,Clean Catch 11/27/20 20:00 Legionella Urinary Antigen - Final Urine Catheterized A&P Assessment and plan (1) Obesity: Status: Acute (2) ARDS (adult respiratory distress syndrome): Status: Acute (3) Hypoxia: Status: Acute (4) COVID-19: Status: Acute Additional A&P Information Active issues ARDS COVID-19 Acute hypoxic respiratory failure requiring mechanical ventilation Morbid obesity Worsening right-sided infiltrate Overnight multiple events of hypoxia when she was taken to CT scan Cardiomegaly on x-ray Hypotension with propofol at 40 First dose of moderna vaccine on Sunday, exposure likely 10 days ago Plan Acute hypoxic respiratory failure requiring mechanical ventilator Severe ARDS, P to F ratio 100 FiO2 weaned down to 75% No signs of PE Continue remdesivir, baricitinib, Decadron, DuoNeb and multivitamins Hold off on paralytics for now her O2 saturation has improved since admission Repeat chest x-ray showing right-sided infiltrate, will add empirical treatment for aspiration with Zosyn No signs of PE continue therapeutic dose of Lovenox for now Keep her net fluid balance in negative range Kidney function is normal Afebrile Not an ideal candidate for proning and ECMO I did talk with [facility] Hypotension No signs of PE, No signs of active septic shock Autonomic dysfunction unlikely She does have cardiomegaly on x-ray, will follow up with echo Likely propofol related hypotension, rule out myocarditis Currently on levo Increased vascular markings on chest x-ray, will keep her on low-dose Lasix Procalcitonin unremarkable, CRP 100.2, Full code Tube feeding diet started at 10 and optimize up to 30, dietary consult placed Check gastric residuals after holding tube feeds support for about 30 minutes if greater than 250 mL can hold tube feed for about 4 hours DVT prophylaxis currently on therapeutic regimen Family updated Consider pulmonary consult tomorrow Attestations Medical Necessity Statement*: Continue ICU management Time Spent in Patient Care: Greater than 35 minutes Coding Level of Care Code Acute Slitter Cut Off Operator for [facility] Fwd Diagnoses Obesity E66.9 ARDS (adult respiratory distress syndrome) J80 Hypoxia R09.02 COVID-19 U07.1
--- NOTE | 2020-11-28 15:40 | PC.NUTR ---
NUTR TF RECOMMENDATIONS: Feed only when head is elevated >30 degrees. Glucerna with goal rate of 50 ml/hr providing 1440 kcal (69%), 1852 kcal with propofol (89%), 72 g PRO (100%), and 966 ml fluid (46%)(%NEEDS). TF initiated at 10 ml/hr, suggesting increase by 10 ml Q6H as tolerated till goal rate is met. Suggest H2O flushes of 145 ml Q4H to approach fluid needs or per physician.
[2020-11-28] MEDS: aztreonam 2,000 MG in sodium chloride 0.9% (plus) 100 ML 200 MG IV (17:53)
[2020-11-28] MEDS: remdesivir 100 MG in sodium chloride 0.9% (100 ml) 100 ML IV (17:56)
--- NOTE | 2020-11-28 19:06 | NUR.SHIFT ---
Shift Note Frequent safety and comfort rounds continue. Orders and/or nursing care completed as indicated. Patient monitored for response to intervention and treatment(s). Sister Venice and children updated on the patient status. Dr. Oh discussed treatment and plans with the family. Will continue to monitor.
[2020-11-28 19:37] LABS: Glucose Point of Care 157 mg/dL (70-110)
[2020-11-28 20:27] LABS: Glucose Point of Care 159 mg/dL (70-110)
[2020-11-28] MEDS: propofol 1,000 MG/100 ML INJ 35.15 MG IV (21:07)
[2020-11-28] MEDS: propofol 1,000 MG/100 ML INJ 39.05 MG IV (23:32)
[2020-11-29] VITALS (100 sets, daily range): BP systolic 91–130; BP diastolic 46–81; PULSE 59–110; RESP 2–30; TEMP 36.8–36.9; O2SAT 85–100
[2020-11-29] MEDS: propofol 1,000 MG/100 ML INJ 39.05 MG IV ×5 (02:25→15:33)
[2020-11-29] MEDS: ipratropium-albuterol 3 mL Neb INHALATION ×4 (03:18→20:32)
--- NOTE | 2020-11-29 04:18 | PC.NURSE ---
Shift Note Frequent safety and comfort rounds continue. Pt repositioned and oral care preformed every 2 hours. Daughter called and was updated.Orders and nursing care completed as indicated. Patient monitored for response to intervention and treatment(s). Education provided includes propofol, Fentanyl, Versed, and Levophed. Daughter verbalized understanding.
[2020-11-29 04:46] LABS: Basophils % 0.1 %; Hematocrit 42.3 % (37.0-47.0); Hemoglobin 13.7 g/dL (11.5-15.3); Lymphocytes # 1.5 10^3/uL (0.8-4.8); Mean Corpuscular HGB Conc 32.4 g/dL (30.0-36.0); Mean Corpuscular Hemoglobin 29.5 pg (28.0-34.0); Mean Corpuscular Volume 91.2 fl (81-99); Mean Platelet Volume 10.1 fL (7.4-10.4); Monocytes # 0.5 10^3/uL (0.2-0.9); Monocytes % 7.3 %; Neutrophils # 5.07 10^3/uL (1.8-7.7); Nucleated Red Blood Cells % 0 %; Platelet Count 320 10^3/cmm (130-400); Red Blood Count 4.64 10^6/uL (4.1-5.3); Red Cell Distribution Width 13.6 % (12.1-15.1); White Blood Count 7.1 10^3/uL (4.0-10.0)
[2020-11-29] MEDS: aztreonam 2,000 MG in sodium chloride 0.9% (plus) 100 ML 200 MG IV (04:50)
[2020-11-29] MEDS: enoxaparin 100 mg/mL Syringe SUBCUT (05:02)
[2020-11-29] MEDS: enoxaparin 30 mg/0.3 mL Syringe SUBCUT (05:03)
[2020-11-29 05:15] LABS: D Dimer 0.42 ug/mIFEU (0-0.59)
[2020-11-29 05:25] LABS: ABG PH Result 7.39 (7.35-7.45); Arterial Blood Gas Hematocrit 44.6 % (37-47); Base Excess ABG 1.1 mmol/L (-2.0-2.0); Blood Gas Allen Test Pos; Blood Gas Operator Identificat JB; Blood Gas Sample Site Radial, right; Blood Gas Sample Type Arterial; HCO3 ABG 26.5 mmol/L (22-26); PO2 ABG 50.2 mmHg (80.0-100.0)
[2020-11-29 05:26] LABS: Blood Gas Tidal Volume 0.35; Oxygen Device VENT
[2020-11-29 05:30] LABS: Procalcitonin 0.07 ng/mL (0-0.5)
[2020-11-29 05:32] LABS: Glucose Point of Care 127 mg/dL (70-110)
[2020-11-29 05:46] LABS: Anion Gap 18.5 (5-19); Blood Urea Nitrogen 18 mg/dL (6-20); C Reactive Protein 102.8 mg/L (0.0-4.9); Calcium 8.3 mg/dL (8.5-10.5); Carbon Dioxide 24 mmol/L (22-29); Chloride 104 mmol/L (98-107); Glomerular Filtration Rate 81.2 mL/min (90-130); Glucose 128 mg/dL (65-115); Osmolality Calculated 300 mOsm/kg (285-295); Potassium 3.5 mmol/L (3.5-5.1); Sodium 143 mmol/L (136-145)
[2020-11-29 05:57] LABS: Slide Review Slide Review Perform
[2020-11-29 09:22] LABS: Glucose Point of Care 118 mg/dL (70-110)
[2020-11-29] MEDS: budesonide 0.5 mg/2 mL Neb INHALATION ×2 (09:26→20:32)
--- NOTE | 2020-11-29 09:56 | PC.CHAP ---
Pastoral Care Encounter/Spiritual Assessment Type of Contact [] Declined raw hide trimmer visit [] Patient/Family/Request visit [] Outpatient visit [] Follow-up visit [] Physician referral [] Code/Alert [x] Routine visit [] Staff referral [] Actively dying [] Patient sleeping [x] Family support [] [] Out of room [] Palliative care [] [] Receiving care in room [] Pre-surgical visit [] Trauma [] Long length of stay [x] ICU visit [x] Other: covid Relational/Emotional Strength [] Patient feels connected with others/family/visitors/staff [] Distress [] Loneliness/isolation [] Abandonment Spirituality of Patient [] Person of Yareli [] Attends Alevism of their Yareli [] Believes in Prayer [] Reads Bible or Religion materials [] There are Spiritual issues to be addressed Fisheries Director Interventions [x] Prayer [] Active listening [] Non-anxious presence [] Spiritual/emotional support [] Crisis/trauma care [] Spiritual counseling [] Bereavement support [] Provided bereavement packet [] Provided Bible/devotional materials [] Provided toy/stuffed animal, coloring book to patient or family member [] Provided Communion [] Anointing/[place] [] Salvation [x] Completed spiritual assessment [] Other: Impact on Illness or Injury [] Angry [] Fearful [] Anxious [] Often cries [] Exhaustion [] Unable to work [] Unable to attend latter day [] Unable to walk/stand [] Unable to read [] Unable to drive [] Unable to eat/drink [] Unable to sleep [] Unable to be with family [] Patient intubated [] Other: Summary Time spent with patient
[2020-11-29] MEDS: cholecalciferol (vitamin D3) 1,000 unit Tablet 2000 UNIT PO (10:16)
[2020-11-29] MEDS: ascorbic acid 500 mg Tablet 1000 MG PO (10:16)
[2020-11-29] MEDS: zinc gluconate 50 mg Tablet PO (10:16)
[2020-11-29] MEDS: pantoprazole 40 mg SDV IVP ×2 (10:16→20:10)
[2020-11-29] MEDS: sennosides-docusate Tablet 1 TAB PO (10:16)
[2020-11-29] MEDS: FUROsemide 10 mg/mL SDV 2mL 20 MG IVP (10:17)
[2020-11-29] MEDS: dexamethasone 10 mg/mL INJ 6 MG IVP (11:00)
--- NOTE | 2020-11-29 11:48 | USCV_ITS ---
Verito Harmon Age: 35 Gender: F : 1985 Exam Date: 11/29/2020 13:45 Ordering Phys: Teddy Nash MD Technologist: SERAFIN [place] [facility] [place]: DVT HISTORY: Lower extremity swelling. PROCEDURES: Venous duplex imaging was performed in bilateral lower extremities. The following venous structures were evaluated: common femoral vein, profunda vein, proximal portion of the greater saphenous vein, superficial femoral vein, and the popliteal vein. In addition, the posterior tibial and peroneal trunk were evaluated. FINDINGS: Normal 2-D Doppler and augmentation and compressibility throughout the lower extremity venous structures. Additional imaging through the proximal calf veins also reveals no thrombus. Limited evaluation of the greater saphenous vein is patent with no thrombus. CONCLUSIONS No DVT bilateral lower extremities. Dr. Elza Pike DO (Electronically Signed) Final Date: 29 November 2020 15:37 S
--- NOTE | 2020-11-29 12:00 | PC.NURSE ---
Central line dressing change completed. [place] Contour shield dressings applied.
[2020-11-29 13:09] LABS: Glucose Point of Care 126 mg/dL (70-110)
[2020-11-29] MEDS: levofloxacin-dextrose 5 % 750 MG/150 ML PREMIX 100 MG IV (13:15)
[2020-11-29] MEDS: cisatracurium 100 MG in sodium chloride 0.9% 50 ML IV (14:35)
[2020-11-29] MEDS: artificial tears Op Oint 3.5 gm 1 APPLIC EYE-BOTH (15:32)
--- NOTE | 2020-11-29 15:52 | USCV_ITS ---
Verito Harmon Age: 35 Gender: F : 1985 Exam Date: 11/29/2020 06:44 Ordering Phys: Sara Oh MD Technologist: Exam Location: [place] Indication: SOB COVID BP: 110 / 62 HR: 93 Rhythm: Sinus Technical Quality: Suboptimal MEASUREMENTS (Male / Female) Normal Values 2D ECHO LV Diastolic Diameter PLAX 3.9 cm 4.2 - 5.9 / 3.9 - 5.3 cm LV Systolic Diameter PLAX 2.6 cm IVS Diastolic Thickness 1.1 cm 0.6 - 1.0 / 0.6 - 0.9 cm IVS Systolic Thickness 1.5 cm LVPW Diastolic Thickness 1.1 cm 0.6 - 1.0 / 0.6 - 0.9 cm LVPW Systolic Thickness 1.1 cm LVOT Diameter 1.8 cm LV Ejection Fraction 2D Teich 63.4 % LV Ejection Fraction MOD 2C 43.7 % LV Ejection Fraction 2C AL 44.4 % LA Diameter 3.0 cm LA Width 3.3 cm LA Height 4.1 cm RA Width 3.3 cm RA Height 4.1 cm FINDINGS Left Ventricle Normal left ventricular cavity size. Normal left ventricular systolic function. Left ventricular ejection fraction is estimated at 63 %. Right Ventricle Right Atrium Left Atrium Mitral Valve Aortic Valve Tricuspid Valve Pulmonic Valve Pericardium Aorta CONCLUSIONS Please note that this is a limited study to assess LV function in a patient who has Covid 1-Normal left ventricular cavity size. Normal left ventricular systolic function. Left ventricular ejection fraction is estimated at 63 %. 2-There is no pericardial effusion. 3-This study cannot be compared with the prior exam since it is limited in scope Sara Stephenson MD (Electronically Signed) Final Date: 29 November 2020 21:23 S
--- NOTE | 2020-11-29 15:57 | PM.CONSULT ---
Providers/Reason For Consult Consulting Physician/Specialty*: Pulmonary and critical care medicine Reason for Consult*: Severe COVID-19 with acute hypoxic respiratory failure Attending Physician: Cesia Vazquez MD Primary Care Provider: LUCAS Tristan History of Present Illness History of Present Illness Verito Harmon is a 35 year old female who was admitted to the hospital on November 27 with acute respiratory failure, ARDS secondary to COVID-19. The patient tested positive for COVID-19 on November 22. She was taking azithromycin and dexamethasone at home. Upon presentation to the ED, the patient was hypoxic and eventually intubated after failing noninvasive positive pressure ventilation. The patient had been receiving treatment with remdesivir, dexamethasone, baricitinib. I had seen and examined the patient in the intensive care unit today. The patient was intubated and sedated. Compliant with the vent. Bedside ultrasound revealed bilateral B-lines. Good cardiac contractility. The IVC was not overtly dilated. The patient had been receiving aztreonam. Endotracheal aspirate grew upper respiratory arnold. ED angiogram on admission revealed no pulmonary embolism. The patient has bilateral pulmonary infiltrate consistent with COVID-19. Blood culture has been negative. Her past medical history includes obesity and mild obstructive sleep apnea. Review of Systems Narrative: Unable to obtain Meds/Allergies Home Medications and Allergies Home Medications Medication Instructions Recorded Confirmed Last Taken Type clonazepam 1 mg tablet 1 mg PO BID #60 tab 08/03/20 11/27/20 Unknown Rx vilazodone 40 mg tablet 40 mg PO DAILY #30 tab 08/03/20 11/27/20 Unknown Rx dextromethorphan-guaifenesin 10 15 ml PO BID PRN 11/22/20 11/27/20 Unknown History mg-200 mg/15 mL oral liquid azithromycin 250 mg tablet See Rx Instructions PO .COMPLEX #6 11/24/20 11/27/20 Unknown Rx tab dexamethasone 2 mg tablet 6 mg PO DAILY 8 Days #24 tab 11/24/20 11/27/20 Unknown Rx Allergies Allergy/AdvReac Type Severity Reaction Status Date / Time benzonatate Allergy unknown Verified 11/22/20 09:36 [From Tessalon Perles] prochlorperazine Allergy unknown Verified 11/22/20 09:36 [From Compazine] amoxicillin [From Augmentin] AdvReac unknown Verified 11/22/20 09:36 clavulanic acid AdvReac unknown Verified 11/22/20 09:36 [From Augmentin] Current Medications Current Medications Generic Name Dose Route Start Last Admin Trade Name Freq PRN Reason Stop Dose Admin Albuterol/Ipratropium 3 ml 11/27/20 21:00 11/29/20 14:46 Ipratropium-Albuterol 3 Ml Neb INHALATION 3 ml Q6H.RESPIRATORY PEACE Administration Artificial Tears 1 applic 11/27/20 16:52 11/29/20 15:32 Artificial Tears Op Oint 3.5 Gm EYE-BOTH 1 applic PRN PRN Administration DRY EYE(S) Budesonide 0.5 mg 11/27/20 20:00 11/29/20 09:26 Budesonide 0.5 Mg/2 Ml Neb INHALATION 0.5 mg BID.RESPIRATORY PEACE Administration Dexamethasone 6 mg 11/28/20 11:30 11/29/20 11:00 Dexamethasone 10 Mg/Ml Inj IVP 6 mg Q24H PEACE Administration Midazolam HCl 100 mg/ Sodium 100 mls @ 0 mls/hr 11/27/20 12:30 11/29/20 13:48 Chloride IV 5 mg/hr .Q0M PEACE 5 mls/hr Administration Protocol Per Protocol Fentanyl 1,000 mcg/ Sodium 100 mls @ 0 mls/hr 11/27/20 12:30 11/29/20 14:21 Chloride IV 100 mcg/hr .Q0M PEACE 10 mls/hr Administration Protocol Per Protocol Propofol 1,000 mg in 100 mls @ 0 mls/hr 11/27/20 14:00 11/29/20 15:33 Diprivan IV 50 mcg/kg/min .Q0M PEACE 39.05 mls/hr Administration Protocol Per Protocol Cisatracurium Besylate 100 mg/ 100 mls @ 0 mls/hr 11/27/20 16:52 11/29/20 15:00 Sodium Chloride IV 0.6 mcg/kg/min .Q0M PEACE 4.69 mls/hr Titration Protocol Per Protocol Remdesivir 100 mg/ Sodium 100 mls @ 100 mls/hr 11/28/20 18:00 11/28/20 18:56 Chloride IV 12/01/20 18:59 Infused Q24H PEACE Infusion Norepinephrine Bitartrate 4 mg 254 mls @ 0 mls/hr 11/28/20 08:15 11/29/20 13:47 / Dextrose IV 2 mcg/min .Q0M PEACE 7.62 mls/hr Administration Protocol Per Protocol Levofloxacin/Dextrose 750 mg in 150 mls @ 100 mls/hr 11/29/20 12:00 11/29/20 15:02 Levaquin-D5w IV 12/06/20 11:59 Infused Q24H PEACE Infusion Protocol Insulin Aspart 0 unit 11/27/20 18:00 11/29/20 13:14 Insulin Aspart 100 Unit/1 Ml SUBCUT Not Given WM&BEDTIME PEACE Protocol PFSH Acute PFSH: Medical History Bulimia nervosa in remission Chronic migraine without aura, intractable, with status migrainosus Common migraine with intractable migraine Excoriation (skin-picking) disorder Functional neurological symptom disorder with attacks or seizures Hypersomnia Major depressive disorder Migraine Obstructive sleep apnea Other moth exterminator (current) drug therapy Post-traumatic stress disorder, chronic Psychiatric care Sleepwalking disorder Suspected COVID-19 virus infection Viral URI with cough Surgical History H/O tubal ligation History of kidney surgery Family History Other CAD (coronary artery disease) Diabetes Hypertension Denies family history of Cancer Stroke Social History Smoking and tobacco status: never smoked Alcohol intake: current Alcohol intake frequency: few times a month Desire information about substance/drug rehabilitation?: No History of recent travel: No Current gender identity: Female Female Reproductive History: Spontaneous abortions: No Vitals/I&O/Wt Last Vital Signs Temp 98.3 F 11/29/20 08:15 Pulse 72 11/29/20 14:44 Resp 20 H 11/29/20 14:44 BP 110/73 11/29/20 11:30 Pulse Ox 93 11/29/20 14:44 11/29/20 11/29/20 11/29/20 06:59 14:59 22:59 Intake Total 366.333 / 1073.094 793.529 / 793.529 341.346 / 1134.875 Output Total 450 / 1250 Balance -83.667 / -176.906 793.529 / 793.529 341.346 / 1134.875 Physical Exam Narrative: EXAM NARRATIVE: General: Patient is intubated and sedated Neck: Unable to assess JVD Respiratory: Auscultation: Coarse breath sound bilaterally, no wheezing or rhonchi Cardiovascular: Regular rate and rhythm, S1-S2 present, no murmur, no peripheral edema. Abdomen: Soft, distended from obesity, positive bowel sound Skin: No rash Neuro: Patient is sedated, unable to assess Urinary Catheter Management^: Edwards: Cath Placed During This Visit: yes Reason for Continuing Indwelling Catheter: Accurate Measurement of Urinary Output in Critically Ill Patients Urinary Catheter Date of Insertion: 11/27/20 Data Micro: Micro: Microbiology 11/27/20 13:00 Gram Stain - Final Sputum - Endotrac heal Tube Aspirate Sputum Culture - F inal A&P Assessment and plan (1) ARDS (adult respiratory distress syndrome): This is a 35-year-old lady with SARS-CoV-2 pneumonia leading to ARDS. Currently the patient is intubated and sedated. Her PF ratio is less than 100. Her inflammatory markers are elevated including CRP more than 100. The patient would be a candidate for prone positioning. She will be paralyzed. We will continue with 16 to 18 hours of prone positioning. We will continue with lung protective ventilatory strategies. Status: Acute (2) Pneumonia due to severe acute respiratory syndrome coronavirus 2 (SARS-CoV-2): The patient is currently on remdesivir, dexamethasone and Versed today. I am going to discontinue the Versed and start the patient on Tocilizumab. Her respiratory cultures have been negative so far. Procalcitonin level is normal. I am going to start the patient empirically on Levaquin. The patient is not volume overloaded at this time. There is no evidence of pulmonary embolism. I am going to discontinue the therapeutic dose anticoagulation. The patient will be on 40 mg of Lovenox twice a day. Continue with GI prophylaxis. Plan is for family meeting at 4:30 PM today. Status: Acute Consult Attestations Critical Care Time: Critical Care Time (min): 43 Coding Level of Care Code Acute Photographer Model for Noemy Adan Diagnoses ARDS (adult respiratory distress syndrome) J80 Pneumonia due to severe acute respiratory syndrome coronavirus 2 (SARS-CoV-2) U07.1; J12.82
[2020-11-29 17:34] LABS: Glucose Point of Care 170 mg/dL (70-110)
[2020-11-29] MEDS: remdesivir 100 MG in sodium chloride 0.9% (100 ml) 100 ML IV (17:35)
--- NOTE | 2020-11-29 17:50 | P.PN_ITS ---
Subjective Subjective: Interval history: Seen this morning in ICU bed 8. on Fentanyl 100, versed 5, propofol 50, levophed 7.5. She is intubated and sedated. NG tube as bloody aspirate. Vitals/I&O/Wt Last Vital Signs Temp 98.3 F 11/29/20 08:15 Pulse 72 11/29/20 14:44 Resp 20 H 11/29/20 17:01 BP 110/73 11/29/20 11:30 Pulse Ox 99 11/29/20 17:01 11/29/20 11/29/20 11/29/20 06:59 14:59 22:59 Intake Total 366.333 / 1073.094 793.529 / 793.529 341.346 / 1134.875 Output Total 450 / 1250 Balance -83.667 / -176.906 793.529 / 793.529 341.346 / 1134.875 Physical Exam Narrative: EXAM NARRATIVE: EXAM NARRATIVE: General: Patient is intubated and sedated Neck: Unable to assess JVD due to body habitus Respiratory: Auscultation: Coarse breath sound bilaterally, no wheezing or rhonchi Cardiovascular: Regular rate and rhythm, S1-S2 present, no murmur, no peripheral edema. Abdomen: Soft, distended from obesity, positive bowel sound Skin: No rash Neuro: Patient is sedated, unable to assess Urinary Catheter Management^: Edwards: Cath Placed During This Visit: yes Reason for Continuing Indwelling Catheter: Accurate Measurement of Urinary Output in Critically Ill Patients Urinary Catheter Date of Insertion: 11/27/20 Data : 11/29/20 03:40 11/29/20 03:40 Micro: Microbiology 11/27/20 13:00 Gram Stain - Final Sputum - Endotracheal Tube Aspirate Sputum Culture - Final A&P Assessment and plan (1) ARDS (adult respiratory distress syndrome): This is a 35-year-old lady with SARS-CoV-2 pneumonia leading to ARDS. Currently the patient is intubated and sedated. Her PF ratio < 100. CRP > 100 Pulmonology critical care on board. Patient proned today. Nimbex started. Will continue 16-18 hours of prone positioning. Versed d/c and patient started on tocilizumab. Resp cultures negative so far. Procalcitonin level is normal. Patient empirically on levaquin Will d/c full dose lovenox and transition to BID 40 mg dose. Protonix 40 mG BID Will hold feeds for now. Attended family meeting with Dr. Nash today. Vent management as per pulm/crit care. Will keep family updated. Status: Acute (2) COVID-19: Status: Acute (3) Pneumonia due to severe acute respiratory syndrome coronavirus 2 (SARS-CoV-2): Status: Acute Attestations Medical Necessity Statement*: ICU level care required. Time Spent in Patient Care: 16 - 35 minutes Coding Level of Care Code Acute Golf Starter And Ranger for [facility] Fwd Diagnoses ARDS (adult respiratory distress syndrome) J80 COVID-19 U07.1 Pneumonia due to severe acute respiratory syndrome coronavirus 2 (SARS-CoV-2) U07.1; J12.82
--- NOTE | 2020-11-29 18:00 | PC.NURSE ---
1445: BIS 32 TOF 4/4. NOt vent complinat yet. Adjustments made to Nimbex gtt. 1500: BIS 38 TOF 4/4. Nimbex titrated again. 1545: BIS 32 PT vent compliant with rate of 20. Pt proned. 1600: BIS 28 TOF 4/4. PT vent compliant. Sedation decreased. 1800 BIS 33 TOF 3/4. Pt vent compliant.
[2020-11-29] MEDS: propofol 1,000 MG/100 ML INJ 31.24 MG IV ×2 (18:40→22:30)
--- NOTE | 2020-11-29 19:33 | PC.NURSE ---
Shift Note: Pt remains sedated and intubated. Pt on first proning session. Levophed stopped. Nimbex gtt started. Tocilizumab admin today. Pt received 2 0f 4 doses of remdesivir today. Urine output of 1450ml Frequent safety and comfort rounds continue. Orders and/or nursing care completed as indicated. Patient monitored for response to intervention and treatment(s). Education provided includes Nimbex, Lovenox, Proning. Patient and/or financial representative verbalized understanding.. Will continue to monitor.
[2020-11-29] MEDS: enoxaparin 40 mg/0.4 mL Syringe SUBCUT (19:46)
[2020-11-29 20:05] LABS: Glucose Point of Care 135 mg/dL (70-110)
[2020-11-29] MEDS: cisatracurium 100 MG in sodium chloride 0.9% 50 ML 10.15 MG IV (23:38)
[2020-11-30] VITALS (68 sets, daily range): BP systolic 93–143; BP diastolic 47–87; PULSE 55–119; RESP 20; TEMP 36.5–36.9; O2SAT 90–100
[2020-11-30] MEDS: propofol 1,000 MG/100 ML INJ 27.34 MG IV (01:02)
[2020-11-30] MEDS: ipratropium-albuterol 3 mL Neb INHALATION ×4 (03:19→20:42)
--- NOTE | 2020-11-30 04:39 | PC.NURSE ---
Addendum entered by Mariluz Beasley RN 11/30/20 06:06: TIME: TOF: BIS: 06/06 33 2100 06/06 41 2200 06/06 34 2300 06/06 48 0000 06/06 32 0100 06/06 38 0200 06/06 39 0300 06/06 35 0400 06/06 47 0500 06/06 41 0600 06/06 38 Original Note: Shift Note Frequent safety and comfort rounds continue. Pt was repositioned and head turned every 2 hours. Pt tolerated well. Orders nursing care completed as indicated. Patient monitored for response to intervention and treatment. Education provided includes proning benefits. Pre K Special Education Teacher verbalized understanding.
[2020-11-30] MEDS: propofol 1,000 MG/100 ML INJ 31.24 MG IV (04:43)
[2020-11-30 04:51] LABS: ABG PCO2 47.9 mmHg (35-45); ABG PH Result 7.38 (7.35-7.45); Arterial Blood Gas Hematocrit 42.1 % (37-47); Base Excess ABG 2.6 mmol/L (-2.0-2.0); Blood Gas Allen Test Pos; Blood Gas Sample Site Radial, right; Blood Gas Sample Type Arterial; Blood Gas Tidal Volume 0.36; HCO3 ABG 28.5 mmol/L (22-26); Oxygen Device VENT
[2020-11-30 05:57] LABS: Glucose Point of Care 112 mg/dL (70-110)
[2020-11-30 08:12] LABS: Glucose Point of Care 109 mg/dL (70-110)
[2020-11-30] MEDS: propofol 1,000 MG/100 ML INJ 23.43 MG IV ×3 (08:12→16:47)
[2020-11-30] MEDS: pantoprazole 40 mg SDV IVP ×2 (08:13→20:15)
[2020-11-30] MEDS: enoxaparin 40 mg/0.4 mL Syringe SUBCUT ×2 (08:13→19:33)
[2020-11-30] MEDS: budesonide 0.5 mg/2 mL Neb INHALATION ×2 (09:06→20:42)
[2020-11-30] MEDS: cisatracurium 100 MG in sodium chloride 0.9% 50 ML 10.15 MG IV (09:30)
--- NOTE | 2020-11-30 10:12 | PM.PN ---
Subjective Subjective: Interval history: The patient was seen and examined this morning. She is in prone position. Her FiO2 requirement has come down to 45%. The patient is paralyzed and sedated at this time. Good urine output, creatinine stable. No significant laboratory abnormalities. Medications: Reviewed: Yes Vitals/I&O/Wt Last Vital Signs Temp 97.7 F 11/30/20 08:30 Pulse 83 11/30/20 09:30 Resp 20 H 11/30/20 09:15 BP 113/71 11/30/20 09:30 Pulse Ox 98 11/30/20 09:30 11/29/20 11/30/20 11/30/20 22:59 06:59 14:59 Intake Total 676.080 / 1469.609 312.298 / 1781.907 230 / 230 Output Total 1450 / 1450 400 / 1850 Balance -773.920 / 19.609 -87.702 / -68.093 230 / 230 Physical Exam Narrative: EXAM NARRATIVE: General: Patient is intubated and sedated, currently in prone positioning Neck: Unable to assess JVD Respiratory: Auscultation: Coarse breath sound bilaterally posteriorly Cardiovascular: Regular rate and rhythm, S1-S2 present, no murmur, no peripheral edema. Abdomen: Unable to assess Skin: No rash Neuro: Patient is sedated, unable to assess Urinary Catheter Management^: Edwards: Cath Placed During This Visit: yes Reason for Continuing Indwelling Catheter: Accurate Measurement of Urinary Output in Critically Ill Patients Urinary Catheter Date of Insertion: 11/27/20 Data : 11/29/20 03:40 11/29/20 03:40 Micro: Microbiology 11/27/20 13:00 Gram Stain - Final Sputum - Endotracheal Tube Aspirate Sputum Culture - Final Attestation for Other Data: I personally reviewed and interpreted the following: Other data: I have reviewed the patient laboratory microbiologic and radiologic data A&P Assessment and plan (1) ARDS (adult respiratory distress syndrome): This is a 35-year-old lady with SARS-CoV-2 pneumonia leading to ARDS. The patient was paralyzed and proned yesterday. This morning, her FiO2 requirement has come down to 45%. The patient will be supine this morning. Based on her FiO2 requirement I will decide on future proning sessions. If the patient does well and the FiO2 requirement is less than 60%, I will discontinue the paralytics. Regarding sedation, the Versed will be discontinued as soon as possible. If the patient continues to make recovery, she may be extubated in the next 48 hours. For the time being, we will continue with lung protective ventilatory strategies. Status: Acute (2) Pneumonia due to severe acute respiratory syndrome coronavirus 2 (SARS-CoV-2): The patient is currently on remdesivir, dexamethasone. The patient received Tocilizumab on 11/29. We will continue with empiric Levaquin. The cultures have been negative so far. Status: Acute Attestations Medical Necessity Statement*: Will defer to the primary team Coding Level of Care Code Acute Principal Systems Engineer for [facility] Diagnoses ARDS (adult respiratory distress syndrome) J80 Pneumonia due to severe acute respiratory syndrome coronavirus 2 (SARS-CoV-2) U07.1; J12.82 Time Spent (min) 33
--- NOTE | 2020-11-30 10:23 | PC.SOCIAL ---
IMM Not Updated Pg. 2 of IMM Not updated. Patient intubated at this time, and not expected to discharge within the next 48hours.
--- NOTE | 2020-11-30 10:57 | PC.NURSE ---
Patient was placed in the supine position at 1045. Patient tolerated well. Nimbex being titrated off.
[2020-11-30 11:14] LABS: Glucose Point of Care 91 mg/dL (70-110)
[2020-11-30] MEDS: levofloxacin-dextrose 5 % 750 MG/150 ML PREMIX 100 MG IV (11:18)
[2020-11-30] MEDS: dexamethasone 10 mg/mL INJ 6 MG IVP (11:18)
--- NOTE | 2020-11-30 14:36 | P.PN_ITS ---
Subjective Medications: Reviewed: Yes Vitals/I&O/Wt Last Vital Signs Temp 97.7 F 11/30/20 08:30 Pulse 70 11/30/20 13:30 Resp 20 H 11/30/20 11:32 BP 110/76 11/30/20 11:00 Pulse Ox 97 11/30/20 13:30 11/29/20 11/30/20 11/30/20 22:59 06:59 14:59 Intake Total 676.080 / 1469.609 312.298 / 1781.907 475.05 / 475.05 Output Total 1450 / 1450 400 / 1850 Balance -773.920 / 19.609 -87.702 / -68.093 475.05 / 475.05 Physical Exam Narrative: EXAM NARRATIVE: EXAM NARRATIVE: General: Patient is intubated and sedated currently in prone position. Neck: Unable to assess JVD due to body habitus Auscultation: Coarse breath sound bilaterally posteriorly, no wheezing or rhonchi Cardiovascular: Regular rate and rhythm, S1-S2 present, no murmur, no peripheral edema. Abdomen: Soft, unable to assess due to prone positioning Skin: No rash Neuro: Patient is sedated, unable to assess Urinary Catheter Management^: Edwards: Cath Placed During This Visit: yes Reason for Continuing Indwelling Catheter: Accurate Measurement of Urinary Output in Critically Ill Patients Urinary Catheter Date of Insertion: 11/27/20 Data : 11/29/20 03:40 11/29/20 03:40 A&P Assessment and plan (1) ARDS (adult respiratory distress syndrome): This is a 35-year-old lady with SARS-CoV-2 pneumonia leading to ARDS. Currently the patient is intubated and sedated and in prone position. He will be supine this morning. FiO2 requirement has come down to 45%. If FiO2 requirement less than 60 paralytics will be discontinued. For now she is on Nimbex. Pulmonary critical care on board. Resp cultures negative so far. Procalcitonin level is normal. Patient empirically on levaquin DVT prophylaxis: Lovenox 40 mg twice daily Protonix 40 mG BID Will hold feeds for now. Will order potassium 40 mEq x 1. Vent management as per pulm/crit care. Will keep family updated. Status: Acute (2) COVID-19: Status: Acute (3) Pneumonia due to severe acute respiratory syndrome coronavirus 2 (SARS-CoV- 2): Status: Acute Attestations Medical Necessity Statement*: Intubated and sedated in ICU Time Spent in Patient Care: less than 15 minutes Coding Level of Care Code Acute Community Resource Officer for [facility] Fwd Diagnoses ARDS (adult respiratory distress syndrome) J80 COVID-19 U07.1 Pneumonia due to severe acute respiratory syndrome coronavirus 2 (SARS-CoV-2) U07.1; J12.82
--- NOTE | 2020-11-30 15:39 | PC.NUTR ---
Tube feed updated recommendation: Previous tube feed has been held per chart notes; pt is on day 4 NPO. Suggest to start Glucerna at 10mL/hr, increasing by 10mL/hr q8h, until goal rate of 30mL/hr. Beneprotein 1 scoop q6h with 90mL water (60mL to mix, 30mL to flush). Propofol, formula, and Beneprotein combined will provide 1,579kcal/day, 67g protein, and 940mL water. Additional 408 kcal from D5W. Additional water flushes per MD discretion.
--- NOTE | 2020-11-30 15:45 | PC.NURSE ---
Nimbex and versed titrated off this shift per verbal orders. Patient tolerated well and is seen moving and coughing in room.
[2020-11-30] MEDS: potassium chloride premix 100 ML 25 MEQ IV (16:47)
[2020-11-30 17:29] LABS: Anion Gap 13.4 (5-19); Blood Urea Nitrogen 17 mg/dL (6-20); Calcium 8.3 mg/dL (8.5-10.5); Carbon Dioxide 27 mmol/L (22-29); Chloride 103 mmol/L (98-107); Glomerular Filtration Rate 139.6 mL/min (90-130); Glucose 172 mg/dL (65-115); Osmolality Calculated 294 mOsm/kg (285-295); Potassium 4.4 mmol/L (3.5-5.1); Sodium 139 mmol/L (136-145)
[2020-11-30] MEDS: remdesivir 100 MG in sodium chloride 0.9% (100 ml) 100 ML IV (17:38)
[2020-11-30 17:57] LABS: Glucose Point of Care 159 mg/dL (70-110)
--- NOTE | 2020-11-30 18:26 | PC.NURSE ---
Shift Note Frequent safety and comfort rounds continue. Patient turned every 2HR and ROM was done. Orders and/or nursing care completed as indicated. Patient monitored for response to intervention and treatment(s). Education provided include extubation and titrating sedation. Patient and/or regional sales representative understood. Will continue to monitor.
[2020-11-30] MEDS: propofol 1,000 MG/100 ML INJ 19.53 MG IV (20:33)
[2020-11-30 21:00] LABS: Glucose Point of Care 131 mg/dL (70-110)
[2020-12-01] VITALS (60 sets, daily range): BP systolic 84–129; BP diastolic 52–92; PULSE 68–110; RESP 20–30; TEMP 36.9–37.1; O2SAT 85–99
[2020-12-01] MEDS: propofol 1,000 MG/100 ML INJ 19.53 MG IV ×2 (01:48→08:22)
--- NOTE | 2020-12-01 01:59 | XRR_ITS ---
PROCEDURE INFORMATION: Exam: XR Chest Exam date and time: 12/01/2020 1:59 AM Age: 35 years old Clinical indication: Device placement; Ng tube; Patient HX: Check og placement. Covid + TECHNIQUE: Imaging protocol: XR of the chest. Views: 1 view. COMPARISON: CR (CHEST, ) 11/28/2020 4:22 AM FINDINGS: This exam is limited due to patient positioning. Tubes, catheters and devices: There is an NG tube projecting along expected course of the esophagus with its tip and sidehole in the stomach other support lines and tubes are unchanged. Lungs: Low lung volumes poorly defined patchy infiltrates throughout both lungs, right greater than left. Pleural spaces: Unremarkable. No pleural effusion. No pneumothorax. Heart/Mediastinum: Unremarkable. No cardiomegaly. Bones/joints: Unremarkable. XR/XR chest 1V portable 75150 IMPRESSION: NG tube in appropriate position. Otherwise stable chest x-ray
[2020-12-01] MEDS: ipratropium-albuterol 3 mL Neb INHALATION ×4 (03:00→20:49)
[2020-12-01 04:18] LABS: ABG PCO2 46.3 mmHg (35-45); ABG PH Result 7.41 (7.35-7.45); Alveolar-Arterial Oxygen Gradi 20.7 mmHg (5-10); Arterial Blood Gas Hematocrit 39.1 % (37-47); Base Excess ABG 3.5 mmol/L (-2.0-2.0); Blood Gas Allen Test Pos; Blood Gas Sample Site Radial, right; Blood Gas Sample Type Arterial; Blood Gas Tidal Volume 0.36; Carboxyhemoglobin 0.5 %THgb (0.4-20.1); HCO3 ABG 28.9 mmol/L (22-26); HGB O2 Sat 95.1 % (95-100); Ionized Calcium Level - ABG 1.1 mmol/L (1.1-1.4); Methemoglobin < 0.0 % (0.4-1.5); Oxygen Device VENT; Oxygen Saturation ABG 94.4; Total Hemoglobin 12.8 g/dL (12-16)
[2020-12-01] MEDS: propofol 1,000 MG/100 ML INJ 35.15 MG IV (04:30)
--- NOTE | 2020-12-01 04:42 | PC.NURSE ---
Shift Note Frequent safety and comfort rounds continue. Pt repositioned every 2 hours. Orders and nursing care completed as indicated. Attempted to wean sedation throughout the night but patient had multiple coughing episodes causing her oxygen to decrease. Had to increase sedation for patient to be compliant with the vent. Patient monitored for response to intervention and treatment. Education provided includes pain management, reinforcement needed.
[2020-12-01 04:46] LABS: Eosinophils % 0.3 %; Hematocrit 40.1 % (37.0-47.0); Hemoglobin 12.7 g/dL (11.5-15.3); Lymphocytes # 1.1 10^3/uL (0.8-4.8); Lymphocytes % 27.3 %; Mean Corpuscular HGB Conc 31.7 g/dL (30.0-36.0); Mean Corpuscular Hemoglobin 29.7 pg (28.0-34.0); Mean Corpuscular Volume 93.7 fl (81-99); Monocytes # 0.4 10^3/uL (0.2-0.9); Monocytes % 9.9 %; Neutrophils # 2.36 10^3/uL (1.8-7.7); Neutrophils % 61.2 %; Nucleated Red Blood Cells % 0 %; Platelet Count 278 10^3/cmm (130-400); Red Blood Count 4.28 10^6/uL (4.1-5.3); Red Cell Distribution Width 13.5 % (12.1-15.1); White Blood Count 3.9 10^3/uL (4.0-10.0)
[2020-12-01 05:06] LABS: Anion Gap 13.3 (5-19); Blood Urea Nitrogen 19 mg/dL (6-20); Calcium 8.3 mg/dL (8.5-10.5); Carbon Dioxide 27 mmol/L (22-29); Chloride 107 mmol/L (98-107); Glomerular Filtration Rate 113.1 mL/min (90-130); Glucose 105 mg/dL (65-115); Osmolality Calculated 299 mOsm/kg (285-295); Potassium 4.3 mmol/L (3.5-5.1); Sodium 143 mmol/L (136-145)
[2020-12-01 06:25] LABS: Glucose Point of Care 102 mg/dL (70-110)
--- NOTE | 2020-12-01 08:01 | PM.PN ---
Subjective Subjective: Interval history: Seen this morning. Patient is intubated and sedated and in supine position this morning. FiO2 45%. No acute events overnight as per nursing staff. Vitals/I&O/Wt Last Vital Signs Temp 98.4 F 12/01/20 00:00 Pulse 82 12/01/20 06:00 Resp 20 H 12/01/20 06:00 BP 86/55 12/01/20 06:00 Pulse Ox 94 12/01/20 06:00 11/30/20 12/01/20 12/01/20 22:59 06:59 14:59 Intake Total 631.070 / 1115.220 298.329 / 1413.549 Output Total 350 / 350 450 / 800 Balance 281.070 / 765.220 -151.671 / 613.549 Physical Exam Narrative: EXAM NARRATIVE: EXAM NARRATIVE: EXAM NARRATIVE: General: Patient is intubated and sedated currently in supine position. Neck: Unable to assess JVD due to body habitus Auscultation: Clear to auscultation anterior lung nelson compared to yesterday. No wheezing or rhonchi Cardiovascular: Regular rate and rhythm, S1-S2 present, no murmur, no peripheral edema. Abdomen: Soft, obese rounded abdomen, bowel sounds positive Skin: No rash Neuro: Patient is sedated, unable to assess Urinary Catheter Management^: Edwards: Cath Placed During This Visit: yes Reason for Continuing Indwelling Catheter: Accurate Measurement of Urinary Output in Critically Ill Patients Urinary Catheter Date of Insertion: 11/27/20 Data : 12/01/20 04:33 12/01/20 04:33 A&P Assessment and plan (1) COVID-19: This is a 35-year-old lady with SARS-CoV-2 pneumonia leading to ARDS. Currently the patient is intubated and sedated and in supine position FiO2 requirement has come down to 45%. Paralytics have been discontinued. Pulmonary critical care on board. Resp cultures negative so far. Procalcitonin level is normal. Patient empirically on levaquin DVT prophylaxis: Lovenox 40 mg twice daily Protonix 40 mG BID Will hold feeds for now. We will try weaning trial Vent management as per pulm/crit care. Status: Acute (2) ARDS (adult respiratory distress syndrome): Status: Acute (3) Pneumonia due to severe acute respiratory syndrome coronavirus 2 (SARS-CoV-2): Status: Acute (4) Obesity: Status: Acute Attestations Medical Necessity Statement*: Requires ICU level care Time Spent in Patient Care: less than 15 minutes Coding Level of Care Code Acute Internet Marketing Intern for g Fwd Diagnoses COVID-19 U07.1 ARDS (adult respiratory distress syndrome) J80 Pneumonia due to severe acute respiratory syndrome coronavirus 2 (SARS-CoV-2) U07.1; J12.82 Obesity E66.9
[2020-12-01] MEDS: enoxaparin 40 mg/0.4 mL Syringe SUBCUT ×2 (08:03→20:58)
[2020-12-01] MEDS: pantoprazole 40 mg SDV IVP ×2 (08:03→20:58)
[2020-12-01 08:06] LABS: Glucose Point of Care 96 mg/dL (70-110)
[2020-12-01] MEDS: budesonide 0.5 mg/2 mL Neb INHALATION ×2 (08:44→20:49)
--- NOTE | 2020-12-01 10:24 | PC.CHAP ---
Pastoral Care Encounter/Spiritual Assessment Type of Contact [] Declined baccarat dealer visit [] Patient/Family/Request visit [] Outpatient visit [] Follow-up visit [] Physician referral [] Code/Alert [x] Routine visit [] Staff referral [] Actively dying [] Patient sleeping [x] Family support [] [] Out of room [] Palliative care [] [] Receiving care in room [] Pre-surgical visit [] Trauma [] Long length of stay [x] ICU visit [] Other: Relational/Emotional Strength [] Patient feels connected with others/family/visitors/staff [] Distress [] Loneliness/isolation [] Abandonment Spirituality of Patient [] Person of Yareli [] Attends Islam of their Yareli [] Believes in Prayer [] Reads Bible or Temple materials [] There are Spiritual issues to be addressed Tag Writer Interventions [x] Prayer [] Active listening [] Non-anxious presence [] Spiritual/emotional support [] Crisis/trauma care [] Spiritual counseling [] Bereavement support [] Provided bereavement packet [] Provided Bible/devotional materials [] Provided toy/stuffed animal, coloring book to patient or family member [] Provided Communion [] Anointing/[place] [] Salvation [x] Completed spiritual assessment [] Other: Impact on Illness or Injury [] Angry [] Fearful [] Anxious [] Often cries [] Exhaustion [] Unable to work [] Unable to attend scientologist [] Unable to walk/stand [] Unable to read [] Unable to drive [] Unable to eat/drink [] Unable to sleep [] Unable to be with family [] Patient intubated [] Other: Summary possible removal of vent today... breathing improving .. opened eyes.. family very pleased with improvement Time spent with patient
--- NOTE | 2020-12-01 12:22 | P.PN_ITS ---
Subjective Subjective: Interval history: The patient was seen and examined this morning. In the process of undergoing spontaneous breathing trial. The patient is awake and easily getting agitated. She was vigorously coughing and had some desaturation due to loss of lung volume. The chest x-ray from earlier this morning looks better to me compared to before. She has been doing well over the past 24 hours requiring about 40% FiO2. Medications: Reviewed: Yes Vitals/I&O/Wt Last Vital Signs Temp 98.7 F 12/01/20 08:00 Pulse 81 12/01/20 10:00 Resp 25 H 12/01/20 11:22 BP 90/58 12/01/20 10:00 Pulse Ox 94 12/01/20 11:22 11/30/20 12/01/20 12/01/20 22:59 06:59 14:59 Intake Total 631.070 / 1115.220 298.329 / 1413.549 60.746 / 60.746 Output Total 350 / 350 450 / 800 Balance 281.070 / 765.220 -151.671 / 613.549 60.746 / 60.746 Physical Exam Narrative: EXAM NARRATIVE: General: Patient is intubated and sedated, easily arousable Neck: Unable to assess JVD Respiratory: Auscultation: Coarse breath sound bilaterally posteriorly Cardiovascular: Regular rate and rhythm, S1-S2 present, no murmur, no peripheral edema. Abdomen: Soft, distended, positive bowel sound Skin: No rash Neuro: Patient is arousable, moving spontaneously Urinary Catheter Management^: Edwards: Cath Placed During This Visit: yes Reason for Continuing Indwelling Catheter: Accurate Measurement of Urinary Output in Critically Ill Patients Urinary Catheter Date of Insertion: 11/27/20 Data : 12/01/20 04:33 12/01/20 04:33 Attestation for Other Data: I personally reviewed and interpreted the following: Other data: I have reviewed the patient laboratory, [place] and neurologic data. The chest x-ray from this morning seems better to me than before. A&P Assessment and plan (1) ARDS (adult respiratory distress syndrome): The patient is doing well. I expect the patient to get extubated today. We will start the patient on Precedex, I expect her to have episodes of desaturation especially if she is coughing and losing her functional residual capacity. When the patient is extubated she will be started on high flow nasal cannula. She needs to get out of bed. The enemy for us is atelectasis and will take measures to prevent that from happening. Status: Acute (2) Pneumonia due to severe acute respiratory syndrome coronavirus 2 (SARS-CoV-2): The patient is currently on remdesivir, dexamethasone. The patient received Tocilizumab on 11/29. We will continue with empiric Levaquin. Hoping for the patient to get extubated today. Status: Acute Attestations Medical Necessity Statement*: Will defer to the primary team Coding Level of Care Code Acute Library Serials Assistant [facility] Diagnoses ARDS (adult respiratory distress syndrome) J80 Pneumonia due to severe acute respiratory syndrome coronavirus 2 (SARS-CoV-2) U 07.1; J12.82 Time Spent (min) 33
[2020-12-01] MEDS: dexamethasone 10 mg/mL INJ 6 MG IVP (12:32)
[2020-12-01] MEDS: levofloxacin-dextrose 5 % 750 MG/150 ML PREMIX 100 MG IV (12:32)
--- NOTE | 2020-12-01 16:04 | SUR.HOLD ---
Sedation medication was titrated off and patient was extubated at around 1430 to heated high flow. Tolerated well.
[2020-12-01] MEDS: remdesivir 100 MG in sodium chloride 0.9% (100 ml) 100 ML IV (17:46)
[2020-12-01 18:04] LABS: Glucose Point of Care 131 mg/dL (70-110)
[2020-12-01] MEDS: dextrose 5%-sod chloride 0.45% 1,000 ML 75 ML IV (18:22)
--- NOTE | 2020-12-01 19:03 | PC.NURSE ---
Shift Note Frequent safety and comfort rounds continue and q2hr turns were done. Orders and/or nursing care completed as indicated. Patient monitored for response to intervention and treatment(s). Education provided includes extubation and breathing exercises. Patient and/or advertising representative understand. Will continue to monitor.
[2020-12-01 21:09] LABS: Glucose Point of Care 114 mg/dL (70-110)
[2020-12-02] VITALS (58 sets, daily range): BP systolic 92–120; BP diastolic 62–84; PULSE 22–122; RESP 17–92; TEMP 36.5–37; O2SAT 82–94
[2020-12-02] MEDS: ipratropium-albuterol 3 mL Neb INHALATION ×4 (03:54→20:39)
--- NOTE | 2020-12-02 06:00 | PC.NURSE ---
Safety and comfort rounds were hourly, whileturning was performed every two hours. Orders and/or nursing care completed as indicated. Patient monitored for response to intervention and treatment(s). Education provided breathing exercises and medication reactions. Patient slept most of the night oxygen was high 80's to low 90's at 40 L/40%. Will continue to monitor.
[2020-12-02 07:44] LABS: Glucose Point of Care 94 mg/dL (70-110)
--- NOTE | 2020-12-02 07:45 | P.PN_ITS ---
Subjective Subjective: Interval history: The patient was seen and examined this morning. She was awake and somewhat alert. Does appear little drowsy. She was able to tell me that she knows that she is in the hospital. She stated she was feeling really tired. She states that she was not hungry but agreed to having some juice. Able to move all 4 extremities and following commands fully. Saturating 92 to 94% on 40% FiO2 heated high flow. Patient does have some coughing while talking. I did call her sister yesterday and updated her. They might be coming to visit her today. Patient has not had a bowel movement ever since her ICU stay. Medications: Reviewed: Yes Vitals/I&O/Wt Last Vital Signs Temp 98.7 F 12/01/20 21:00 Pulse 97 12/02/20 06:00 Resp 20 H 12/02/20 03:53 BP 107/71 12/02/20 06:00 Pulse Ox 92 12/02/20 04:30 12/01/20 12/02/20 12/02/20 22:59 06:59 14:59 Intake Total 251.429 / 490.425 Output Total 400 / 400 500 / 900 Balance -148.571 / 90.425 -500 / -409.575 Physical Exam Narrative: EXAM NARRATIVE: General: Patient is alert oriented to place and self. Appears tired sitting up in bed on heated high flow. Neck: Unable to assess JVD due to body habitus Auscultation: Clear to auscultation anterior lung nelson, posterior lung nelson rhonchi. Exam was limited due to patient's positioning being unable to move forward. Cardiovascular: Regular rate and rhythm, S1-S2 present, no murmur, no peripheral edema. Abdomen: Soft, obese rounded abdomen, bowel sounds positive Skin: No rash Neuro: Able to move all 4 extremities and follows all commands. Also able to have a conversation with me. Urinary Catheter Management^: Edwards: Cath Placed During This Visit: yes Reason for Continuing Indwelling Catheter: Accurate Measurement of Urinary Output in Critically Ill Patients Urinary Catheter Date of Insertion: 11/27/20 Data : 12/01/20 04:33 12/01/20 04:33 A&P Assessment and plan (1) COVID-19: SARS-CoV-2 pneumonia leading to ARDS. Patient initially was intubated and sedated when she arrived to the ER. She was prone twice and able to be extubated 12/01/2020. She has been on heated high flow since. FiO2 requirements around 40 to 45% at this time. Family updated. Paralytics discontinued. Patient quite tired and exhausted. Will order speech swallow eval. Bowel sounds present, abdomen soft. I will order one-time lactulose to see if she is able to drink it. Procalcitonin level normal, respiratory cultures negative so far. Continue Levaquin for now. We will de-escalate Protonix 40 mg twice daily to once daily. PT eval Out of bed to chair. Status: Acute (2) ARDS (adult respiratory distress syndrome): Status: Acute (3) Pneumonia due to severe acute respiratory syndrome coronavirus 2 (SARS-CoV-2): Status: Acute (4) Obesity: Status: Acute Attestations Medical Necessity Statement*: on high flow Time Spent in Patient Care: 16 - 35 minutes Coding Level of Care Code Acute Windows Technical Specialist for [facility] Diagnoses COVID-19 U07.1 ARDS (adult respiratory distress syndrome) J80 Pneumonia due to severe acute respiratory syndrome coronavirus 2 (SARS-CoV-2) U07.1; J12.82 Obesity E66.9
[2020-12-02] MEDS: enoxaparin 40 mg/0.4 mL Syringe SUBCUT ×2 (07:51→20:33)
[2020-12-02] MEDS: pantoprazole 40 mg SDV IVP (07:52)
[2020-12-02] MEDS: budesonide 0.5 mg/2 mL Neb INHALATION ×2 (09:28→20:39)
[2020-12-02] MEDS: lactulose oral liq 20 gm/30 mL UDC 30 GM PO (09:43)
--- NOTE | 2020-12-02 11:55 | PC.SOCIAL ---
IMM Update pg 2 of IMM updated w/ patients mother via telephone.
[2020-12-02] MEDS: levofloxacin-dextrose 5 % 750 MG/150 ML PREMIX 100 MG IV (12:35)
[2020-12-02] MEDS: dexamethasone 10 mg/mL INJ 6 MG IVP (12:35)
--- NOTE | 2020-12-02 12:59 | PC.NUTR ---
Nutrition consult: No significant oral intake since 11/27. Spoke to patient to find out any food/drink preferences. Pt agreed to try juices and supplements. Will provide Boost Breeze at every meal + ProSource 1x/day to facilitate energy & protein intake. Recommend to encourage pt at mealtimes specifically to eat and drink. Adjust as needed after swallow evaluation results. See full RD assessment for more details.
--- NOTE | 2020-12-02 14:35 | PC.RESP ---
RT Shift Note Frequent safety and respiratory rounds continue. Orders completed as indicated. Patient monitored pre and post treatments throughout shift. Patient [Did.] tolerate treatments appropriately. Condition [.DidNotChange]. Patient and/or member services representative educated on respiratory treatment and medications. Patient and/or member services representative [reinforcement needed]. Will continue to monitor patient progress.
--- NOTE | 2020-12-02 16:45 | PC.NURSE ---
Patient has been hesitant to do leg, arm and breathing exercises. She states that she is to tired. Patient attempts to pick her legs up and is only able to raise legs a few inches off bed. She will not take deep breath for the IS. PT was able to get patient in chair. Tolerating well.
[2020-12-02 18:06] LABS: Glucose Point of Care 161 mg/dL (70-110)
[2020-12-02 23:18] LABS: Glucose Point of Care 102 mg/dL (70-110)
[2020-12-03] VITALS (47 sets, daily range): BP systolic 83–142; BP diastolic 65–82; PULSE 67–135; RESP 16–39; TEMP 36.8–37.3; O2SAT 83–94
[2020-12-03] MEDS: ipratropium-albuterol 3 mL Neb INHALATION ×4 (03:55→20:55)
[2020-12-03 04:53] LABS: Basophils % 0.2 %; Eosinophils # 0.1 10^3/uL (0.0-0.8); Eosinophils % 2.7 %; Hemoglobin 14.1 g/dL (11.5-15.3); Lymphocytes # 1.5 10^3/uL (0.8-4.8); Lymphocytes % 33.1 %; Mean Corpuscular HGB Conc 31.3 g/dL (30.0-36.0); Mean Corpuscular Hemoglobin 29.1 pg (28.0-34.0); Mean Corpuscular Volume 92.8 fl (81-99); Monocytes # 0.4 10^3/uL (0.2-0.9); Monocytes % 9.2 %; Neutrophils % 53.7 %; Nucleated Red Blood Cells % 0 %; Platelet Count 299 10^3/cmm (130-400); Red Blood Count 4.85 10^6/uL (4.1-5.3); Red Cell Distribution Width 13.2 % (12.1-15.1); White Blood Count 4.5 10^3/uL (4.0-10.0)
[2020-12-03 05:15] LABS: Alanine Aminotransferase 63 U/L (0-33); Alkaline Phosphatase 66 IU/L (35-105); Aspartate Amino Transferase 62 U/L (0-32); Blood Urea Nitrogen 20 mg/dL (6-20); C Reactive Protein 13.6 mg/L (0.0-4.9); Calcium 8.4 mg/dL (8.5-10.5); Carbon Dioxide 25 mmol/L (22-29); Chloride 102 mmol/L (98-107); Globulin 3.2 g/dL (1.3-4.6); Glomerular Filtration Rate 180.6 mL/min (90-130); Glucose 95 mg/dL (65-115); Magnesium 2.3 mg/dL (1.7-2.3); Osmolality Calculated 286 mOsm/kg (285-295); Phosphorus 3.2 mg/dL (2.5-4.5); Sodium 137 mmol/L (136-145); Total Bilirubin 1.2 mg/dL (0.15-1.2); Total Protein 6.2 g/dL (6.6-8.7)
[2020-12-03 05:42] LABS: ABG PCO2 37.7 mmHg (35-45); ABG PH Result 7.46 (7.35-7.45); Arterial Blood Gas Hematocrit 42.1 % (37-47); Base Excess ABG 3.2 mmol/L (-2.0-2.0); Blood Gas Allen Test Pos; Blood Gas Sample Type Arterial; Carboxyhemoglobin 0.9 %THgb (0.4-20.1); HGB O2 Sat 88.8 % (95-100); Ionized Calcium Level - ABG 1.2 mmol/L (1.1-1.4); Methemoglobin 0.2 % (0.4-1.5); Oxygen Saturation ABG 89.7; PO2 ABG 55.3 mmHg (80.0-100.0); Potassium Level - ABG 3.6 mmol/L (3.5-5.0); Total Hemoglobin 13.7 g/dL (12-16)
[2020-12-03 05:43] LABS: Alveolar-Arterial Oxygen Gradi 37.8 mmHg (5-10); Blood Gas Sample Site Radial, right; Oxygen Device HAG
[2020-12-03 08:03] LABS: Glucose Point of Care 85 mg/dL (70-110)
[2020-12-03] MEDS: enoxaparin 40 mg/0.4 mL Syringe SUBCUT ×2 (08:41→20:20)
[2020-12-03] MEDS: pantoprazole 40 mg SDV IVP (08:41)
--- NOTE | 2020-12-03 08:52 | P.CONIM_ITS ---
Providers/Reason for Consult Consulting Physican/Specialty*: Gallito Calvillo MD, psychiatry Reason for Consult*: Starting medications for depression and anxiety Attending Physician: Cesia Vazquez MD Primary Care Provider: LUCAS Tristan Psych Consult HPI History of Present Illness Verito Harmon is a 35 year old female who was intubated and admitted to the ICU on 11/27/2020 for ARDS secondary to Covid infection. She was extubated on 12/01/2020. The patient tells me that she has a history of depression and anxiety which have been treated with Viibryd and Klonopin. She says that prior to tasia Covid, her level of depression was low, anxiety was manageable, and she had no suicidal ideation. She had no side effects on her medications. She had no psychotic symptomatology either. There is no history of substance abuse noted. The patient says that currently she is mostly feeling extremely exhausted, which is understandable. She does not feel particularly depressed, but is sad that she missed her daughter's 17th birthday because she was intubated. She says th at her daughter understood, but it still makes her sad. We did not speak for very long because of the patient's exhaustion level. But she does say she would like to start back on her medications. The patient has a history of psychiatric treatment for PTSD, functional neurological symptom disorder with attacks or seizures; sleepwalking disorder; major depressive disorder; and bulimia nervosa. It is also noted that she has obstructive sleep apnea. She sees Dr. Dyllan Chung at the [facility] [place], and her last visit was 08/03/2020. She was supposed to follow-up in 1 month, but apparently did not. His note indicates that she has been medication adherent and denied any side effects. She was having nightmares 3-5 times per week that were very distressing and woke her in the middle of the night. She attributed the worsening nightmares to a stalker coming back into her life. Dr. Chung noted that it was likely she had chronic dysphoria and not clinical depression. She had no suicidal or homicidal thoughts, and no auditory or visual hallucinations. Dr. Chung started her on prazosin 2 mg at night to treat her nightmares. He continued Viibryd 40 mg daily and Klonopin 1 mg twice daily. Notes indicate she was trying to get a therapist through the [facility] [place]. The patient's last case management visit with Andrae Mendoza was on 09/21/2020. She refused to visit with a substitute pillowcase turner on 11/01/2020. The visit focused on effective communication in the family. They also discussed a stressful situation with her landlord. We also discussed the need for her to be assigned a new pillowcase turner, since her regular pillowcase turner had been made a receiving and processing supervisor, and no longer had capacity to meet with her. Meds Current Medications: Current Medications Generic Name Dose Route Start Last Admin Trade Name Freq PRN Reason Stop Dose Admin Albuterol/Ipratrop ium 3 ml 11/27/20 21:00 12/03/20 03:55 Ipratropium-Albu terol 3 Ml Neb INHALATION 3 ml Q6H.RESPIRATORY S CH Administration Budesonide 0.5 mg 11/27/20 20:00 12/02/20 20:39 Budesonide 0.5 M g/2 Ml Neb INHALATION 0.5 mg BID.RESPIRATORY S CH Administration Dexamethasone 6 mg 11/28/20 11:30 12/02/20 12:35 Dexamethasone 10 Mg/Ml Inj IVP 6 mg Q24H PEACE Administration Enoxaparin Sodium 40 mg 11/29/20 20:00 12/03/20 08:41 Enoxaparin 40 Mg /0.4 Ml Syringe SUBCUT 40 mg Q12H PEACE Administration Levofloxacin/Dextr ose 750 mg in 150 mls @ 100 mls/hr 11/29/20 12:00 12/02/20 17:14 Levaquin-D5w IV 12/06/20 11:59 Infused Q24H PEACE Infusion Protocol Pantoprazole Sodiu m 40 mg 12/03/20 09:00 12/03/20 08:41 Pantoprazole 40 Mg Sdv IVP 40 mg DAILY PEACE Administration PFSH NPU PFSH: Medical History (Updated 12/03/20 @ 09:13 by Gallito Calvillo MD) Bulimia nervosa in remission Chronic migraine without aura, intractable, with status migrainosus Common migraine with intractable migraine Excoriation (skin-picking) disorder Functional neurological symptom disorder with attacks or seizures Hypersomnia Major depressive disorder Migraine Obstructive sleep apnea Other correction (current) drug therapy Post-traumatic stress disorder, chronic Psychiatric care Sleepwalking disorder Suspected COVID-19 virus infection Viral URI with cough Surgical History H/O tubal ligation History of kidney surgery Family History Other CAD (coronary artery disease) Diabetes Hypertension Denies family history of Cancer Stroke Social History Smoking and tobacco status: never smoked Alcohol intake: current Alcohol intake frequency: few times a month Desire information about substance/drug rehabilitation?: No History of recent travel: No Current gender identity: Female Female Reproductive History: Spontaneous abortions: No Mental Status Exam MSE Comments: I met with the patient in the ICU. She was on 60% high flow oxygen with increased work to breathe. She was cooperative and made fairly good eye contact, but it took her a long time to answer each question. She had no psychomotor agitation or retardation, and no abnormal movements or tics were noted. She was alert and oriented to person, place, time and situation. Attention and concentration may be impaired by her level of exhaustion, but they were not formally tested. Memory was intact to recent events. Mood is mostly tired, and affect is mood congruent. Thought process is logical and goal- directed. Thought content: She denies auditory and visual hallucinations. There are no delusions or paranoia noted. She has no current suicidal ideation or homicidal ideation. Language is intact to exam. Her insight, judgment and impulse control are intact. Vitals/I&O/Wt Last Vital Signs Temp 98.6 F 12/02/20 23:30 Pulse 88 12/03/20 08:30 Resp 22 H 12/03/20 05:48 BP 84/67 12/03/20 08:30 Pulse Ox 90 12/03/20 08:30 12/02/20 12/03/20 12/03/20 22:59 06:59 14:59 Intake Total 1180 / 1180 Output Total 400 / 400 650 / 1050 Balance 780 / 780 -650 / 130 Physical Exam Urinary Catheter Management^: Edwards: Cath Placed During This Visit: yes Reason for Continuing Indwelling Catheter: Accurate Measurement of Urinary Output in Critically Ill Patients Urinary Catheter Date of Insertion: 11/27/20 A&P Assessment and plan (1) Major depression in partial remission: Not much depression currently. No suicidal ideation. Pt wants to restart antidepressant, since it has been helping. Restart Viibryd at 10 mg daily for 7 days, then increase by 10 mg daily every 7 days until 40 mg daily is reached. Status: Acute (2) Post-traumatic stress disorder, chronic: If needed for anxiety, restart Klonopin at a lower dose due to her current exhaustion, eg, 0.25 mg twice daily. Status: Acute (3) Functional neurological symptom disorder with attacks or seizures: No reported episodes of pseudoseizures Status: Acute (4) Sleepwalking disorder: Status: Acute (5) COVID-19: Status: Acute (6) Hypoxia: Status: Acute (7) ARDS (adult respiratory distress syndrome): Status: Acute (8) Obesity: Status: Acute (9) Pneumonia due to severe acute respiratory syndrome coronavirus 2 (SARS-CoV-2): Status: Acute Additional A&P Information I will follow along with the patient's care until it is clear that she is psychiatrically stable. Attestations NPU Medical Necessity Statement*: Per bench hand machine. Coding Level of Care Code Acute Fibreglass Lay Up Worker for [employer] Diagnoses Major depression in partial remission F32.4 Post-traumatic stress disorder, chronic F43.12 Functional neurological symptom disorder with attacks or seizures F44.5 Sleepwalking disorder F51.3 COVID-19 U07.1 Hypoxia R09.02 ARDS (adult respiratory distress syndrome) J80 Obesity E66.9 Pneumonia due to severe acute respiratory syndrome coronavirus 2 (SARS-CoV-2) U07.1; J12.82
[2020-12-03] MEDS: budesonide 0.5 mg/2 mL Neb INHALATION ×2 (09:17→20:55)
--- NOTE | 2020-12-03 11:05 | PC.NURSE ---
Josi Rajput called to get an update on the patient. Told that the patient is with PT and up to chair. PT is getting the patient to stand up and sit down. Explained that pharmacy can not get valazidone. Explained that if the family can bring the valazidone our pharmacy can get it into the system. Updated that the heated high flow settings were 50 flow and 60 L.
[2020-12-03 11:28] LABS: Glucose Point of Care 133 mg/dL (70-110)
[2020-12-03] MEDS: levofloxacin-dextrose 5 % 750 MG/150 ML PREMIX 100 MG IV (11:40)
[2020-12-03] MEDS: dexamethasone 10 mg/mL INJ 6 MG IVP (11:40)
[2020-12-03] MEDS: sodium chloride 0.9% 250 ML IV (12:22)
--- NOTE | 2020-12-03 15:30 | PC.NURSE ---
Had meeting with family, mother Josi and sister Venice, and Dr. Vazquez. Patient's high heart rate today, oral intake, activity, post covid weakness, and vilazodone was discussed. Family brought in vilazodone and it was taken to pharmacy. Sister brought in two phones and a double surface operator was brought in for the patient. Sister seen patient from the door window.
--- NOTE | 2020-12-03 16:08 | PM.PN ---
Subjective Subjective: Interval history: Patient seen and examined this morning. She was eating breakfast in her room. She was also offered boost and milk but she said she did not like them. Patient did have 2 little box of apple juice however. She also worked with physical therapy a little bit today. Dr. Calvillo saw the patient in consultation. Patient was alert and awake today sitting up in recliner when seen. She said that she felt very exhausted and weak. She had not many complaints to offer this morning. Vitals/I&O/Wt Last Vital Signs Temp 98.8 F 12/03/20 15:00 Pulse 111 H 12/03/20 15:37 Resp 20 H 12/03/20 15:22 BP 142/77 12/03/20 15:00 Pulse Ox 93 12/03/20 15:22 12/03/20 12/03/20 12/03/20 06:59 14:59 22:59 Intake Total 916 / 916 Output Total 650 / 1050 Balance -650 / 130 916 / 916 Physical Exam Narrative: EXAM NARRATIVE: General: Alert oriented. On heated high flow 60% FiO2, 45 L. Appearing much better compared to previous days. Neck: Unable to assess JVD due to body habitus Auscultation: Clear to auscultation anterior lung nelson, lungs sound much more clear today compared to previous days. Cardiovascular: Tachycardic, S1-S2 present, no murmur, no peripheral edema. Abdomen: Soft, obese rounded abdomen, bowel sounds positive Skin: No rash Neuro: Able to move all 4 extremities and follows all commands. Also able to have a conversation with me. Alert and oriented x3. Urinary Catheter Management^: Edwards: Cath Placed During This Visit: yes Reason for Continuing Indwelling Catheter: Accurate Measurement of Urinary Output in Critically Ill Patients Urinary Catheter Date of Insertion: 11/27/20 Data : 12/03/20 04:27 12/03/20 04:27 A&P Assessment and plan (1) COVID-19: #SARS-CoV-2 pneumonia leading to ARDS #Mild to moderate major depressive disorder Patient initially was intubated and sedated when she arrived to the ER. She was prone twice and able to be extubated 12/01/2020. She has been on heated high flow since. FiO2 requirements around 40 to 45% at this time. Family updated. Paralytics discontinued. Patient was extubated on 12/01/2020. She is still tired and exhausted. Speech swallow eval is ordered and patient is eating regular food. She has not had a bowel movement yet. She did have one-time dose of lactulose yesterday but is refusing to take more. Respiratory culture is negative, procalcitonin level normal. Will complete Levaquin for 7 days total. Protonix once daily. I have ordered the nurse to remove the Edwards. Also had a family meeting with mother and sister. They have brought in the 40 mg of Viibryd from home. As per recommendations from Dr. Calvillo we are to give Viibryd 10 mg daily for 7 days and then increase by 10 mg every week. This medication is nonformulary. I have spoken to the pharmacist and the medication is not on a do not crush last. Nurse will be splitting it into 4 and we will give patient 10 mg daily. Answered all of family's questions today. We will continue to update family. We may use clonazepam at a very low dose if absolutely needed I will hold off for now. I will consider addition of Ritalin in the next 1 to 2 days if patient continues to be overly exhausted. Physical therapy has been ordered. We will transfer patient to [facility] today. She is stable to be moved out of the ICU. We will continue to work with respiratory therapy to wean down oxygen when able. Status: Acute (2) ARDS (adult respiratory distress syndrome): Status: Acute (3) Pneumonia due to severe acute respiratory syndrome coronavirus 2 (SARS-CoV-2): Status: Acute (4) Obesity: Status: Acute Attestations Medical Necessity Statement*: Transfer out of the ICU to [facility] floor today. Patient requiring high amount of oxygen. Time Spent in Patient Care: Greater than 35 minutes (>than 50% of time spent in counselling and/or direct pt care on unit). Coding Level of Care Code Acute Corporate Sales Manager for [employer] Diagnoses COVID-19 U07.1 ARDS (adult respiratory distress syndrome) J80 Pneumonia due to severe acute respiratory syndrome coronavirus 2 (SARS-CoV-2) U07.1; J12.82 Obesity E66.9
[2020-12-03 17:04] LABS: Glucose Point of Care 126 mg/dL (70-110)
--- NOTE | 2020-12-03 18:03 | PM.PSYCN ---
Providers/Reason for Consult Attending Physician: Cesia Vazquez MD Primary Care Provider: LUCAS Tristan Psych Consult HPI History of Present Illness Verito Harmon is a 35 year old female Meds Current Medications: Current Medications Generic Name Dose Route Start Last Admin Trade Name Freq PRN Reason Stop Dose Admin Albuterol/Ipratrop ium 3 ml 11/27/20 21:00 12/03/20 15:18 Ipratropium-Albu terol 3 Ml Neb INHALATION 3 ml Q6H.RESPIRATORY S CH Administration Budesonide 0.5 mg 11/27/20 20:00 12/03/20 09:17 Budesonide 0.5 M g/2 Ml Neb INHALATION 0.5 mg BID.RESPIRATORY S CH Administration Dexamethasone 6 mg 11/28/20 11:30 12/03/20 11:40 Dexamethasone 10 Mg/Ml Inj IVP 6 mg Q24H PEACE Administration Enoxaparin Sodium 40 mg 11/29/20 20:00 12/03/20 08:41 Enoxaparin 40 Mg /0.4 Ml Syringe SUBCUT 40 mg Q12H PEACE Administration Levofloxacin/Dextr ose 750 mg in 150 mls @ 100 mls/hr 11/29/20 12:00 12/03/20 13:14 Levaquin-D5w IV 12/06/20 11:59 Infused Q24H PEACE Infusion Protocol Pantoprazole Sodiu m 40 mg 12/03/20 09:00 12/03/20 08:41 Pantoprazole 40 Mg Sdv IVP 40 mg DAILY PEACE Administration PFSH NPU PFSH: Medical History (Updated 12/03/20 @ 09:13 by Gallito Calvillo MD) Bulimia nervosa in remission Chronic migraine without aura, intractable, with status migrainosus Common migraine with intractable migraine Excoriation (skin-picking) disorder Functional neurological symptom disorder with attacks or seizures Hypersomnia Major depressive disorder Migraine Obstructive sleep apnea Other superintendent container terminal (current) drug therapy Post-traumatic stress disorder, chronic Psychiatric care Sleepwalking disorder Suspected COVID-19 virus infection Viral URI with cough Surgical History H/O tubal ligation History of kidney surgery Family History Other CAD (coronary artery disease) Diabetes Hypertension Denies family history of Cancer Stroke Social History Smoking and tobacco status: never smoked Alcohol intake: current Alcohol intake frequency: few times a month Desire information about substance/drug rehabilitation?: No History of recent travel: No Current gender identity: Female Female Reproductive History: Spontaneous abortions: No Vitals/I&O/Wt Last Vital Signs Temp 98.5 F 12/03/20 16:00 Pulse 105 H 12/03/20 16:00 Resp 35 H 12/03/20 16:00 BP 90/69 12/03/20 16:00 Pulse Ox 92 12/03/20 16:00 12/03/20 12/03/20 12/03/20 06:59 14:59 22:59 Intake Total 916 / 916 Output Total 650 / 1050 450 / 450 Balance -650 / 130 916 / 916 -450 / 466 Physical Exam Urinary Catheter Management^: Edwards: Cath Placed During This Visit: yes Reason for Continuing Indwelling Catheter: Accurate Measurement of Urinary Output in Critically Ill Patients Urinary Catheter Date of Insertion: 11/27/20 Coding Level of Care Code Acute Business Management Specialist for [employer]
--- NOTE | 2020-12-03 18:57 | PC.NURSE ---
Transfer Note Patient transferred to Med Surg 255 bed 2 from ICU 8 via wheelchair. Report faxed and report given to Pam. Patient oriented to environment and equipment. Family notifed that patient moved to Med Surg 255 bed 2. Patient belongings of two phones, two bracelets, and divemaster with patient.
[2020-12-03] MEDS: lanolin oint 7 gm 1 APPLIC TOPICAL (21:27)
[2020-12-04] VITALS (18 sets, daily range): BP systolic 90–136; BP diastolic 56–91; PULSE 76–119; RESP 16–22; TEMP 36.4–37; O2SAT 89–94
--- NOTE | 2020-12-04 00:22 | PC.NURSE ---
i reported high pulse 102 to nurse
[2020-12-04] MEDS: ondansetron 2 mg/ML SDV 2 mL 4 MG IVP (01:33)
[2020-12-04] MEDS: ipratropium-albuterol 3 mL Neb INHALATION ×4 (02:20→20:25)
[2020-12-04] MEDS: artificial tears Op Soln 15 mL Btl 1 DROP EYE-BOTH (03:00)
[2020-12-04 05:27] LABS: Basophils % 0.2 %; Eosinophils # 0.1 10^3/uL (0.0-0.8); Hematocrit 43.7 % (37.0-47.0); Hemoglobin 13.9 g/dL (11.5-15.3); Lymphocytes # 1.7 10^3/uL (0.8-4.8); Lymphocytes % 31.3 %; Mean Corpuscular HGB Conc 31.8 g/dL (30.0-36.0); Mean Corpuscular Hemoglobin 29.4 pg (28.0-34.0); Mean Corpuscular Volume 92.4 fl (81-99); Mean Platelet Volume 10.1 fL (7.4-10.4); Monocytes # 0.5 10^3/uL (0.2-0.9); Monocytes % 9.3 %; Neutrophils # 3.05 10^3/uL (1.8-7.7); Neutrophils % 55.9 %; Nucleated Red Blood Cells % 0 %; Platelet Count 327 10^3/cmm (130-400); Red Blood Count 4.73 10^6/uL (4.1-5.3); Red Cell Distribution Width 13.3 % (12.1-15.1); White Blood Count 5.5 10^3/uL (4.0-10.0)
[2020-12-04 05:47] LABS: Anion Gap 13.7 (5-19); Blood Urea Nitrogen 19 mg/dL (6-20); Calcium 8.3 mg/dL (8.5-10.5); Carbon Dioxide 26 mmol/L (22-29); Chloride 104 mmol/L (98-107); Glomerular Filtration Rate 139.6 mL/min (90-130); Glucose 90 mg/dL (65-115); Magnesium 2.3 mg/dL (1.7-2.3); Osmolality Calculated 292 mOsm/kg (285-295); Phosphorus 3.1 mg/dL (2.5-4.5); Potassium 3.7 mmol/L (3.5-5.1); Sodium 140 mmol/L (136-145)
[2020-12-04 06:41] LABS: Glucose Point of Care 97 mg/dL (70-110)
[2020-12-04] MEDS: enoxaparin 40 mg/0.4 mL Syringe SUBCUT ×2 (08:09→20:54)
[2020-12-04] MEDS: pantoprazole 40 mg SDV IVP (08:09)
[2020-12-04] MEDS: budesonide 0.5 mg/2 mL Neb INHALATION ×2 (08:30→20:25)
--- NOTE | 2020-12-04 10:30 | PC.NUTR ---
Late entry, nutrition note: ICU nurse informed this RD yesterday 12/04/20 that pt would benefit from finger foods, but this RD failed to enter in EMR at that time. Have notified dietary staff this AM. Due to limited space in dietary section of EMR, have removed juice, but pt may select juice with meals as desired. Will continue with Boost Breeze with meals, and prosource gelatein with lunch. Will follow as appropriate.
[2020-12-04] MEDS: levofloxacin-dextrose 5 % 750 MG/150 ML PREMIX 100 MG IV (11:03)
[2020-12-04] MEDS: dexamethasone 10 mg/mL INJ 6 MG IVP (11:03)
--- NOTE | 2020-12-04 11:14 | PM.PN ---
Subjective Subjective: Interval history: Seen and examined this morning. Patient states she feels a little bit better compared to before. Her oxygen requirements today are FiO2 40%, 45 L. Patient complains of soreness on her thigh where the Edwards catheter was attached. She would like to know if we can give her a cream or medication to soothe the area. She was smiling this morning and appeared happy. Vitals/I&O/Wt Last Vital Signs Temp 98.6 F 12/04/20 07:24 Pulse 88 12/04/20 08:30 Resp 21 H 12/04/20 08:30 BP 102/71 12/04/20 07:24 Pulse Ox 92 12/04/20 08:30 12/03/20 12/04/20 12/04/20 22:59 06:59 14:59 Intake Total 338 / 1254 360 / 360 Output Total 650 / 650 450 / 1100 Balance -312 / 604 -450 / 154 360 / 360 Physical Exam Narrative: EXAM NARRATIVE: General: Alert oriented. On heated high flow 40% FiO2, 45 L. Appearing much better compared to previous days. Neck: Unable to assess JVD due to body habitus Auscultation: Clear to auscultation anterior lung nelson, lungs sound much more clear today compared to previous days. Cardiovascular: Slightly tachycardic, S1-S2 present, no murmur, no peripheral edema. Abdomen: Soft, obese rounded abdomen, bowel sounds positive Skin: Right medial thigh 3 x 4 inch bruise.. Urinary Catheter Management^: Edwards: Cath Placed During This Visit: yes, but has since been removed by the nurse Reason for Continuing Indwelling Catheter: Accurate Measurement of Urinary Output in Critically Ill Patients Urinary Catheter Date of Insertion: 11/27/20 Date Urinary Catheter Removed: 12/03/20 Time Urinary Catheter Discontinued: 18:45 Data : 12/04/20 04:17 12/04/20 04:17 A&P Assessment and plan (1) COVID-19: #SARS-CoV-2 pneumonia leading to ARDS #Mild to moderate major depressive disorder Patient initially was intubated and sedated when she arrived to the ER. She was prone twice and able to be extubated 12/01/2020. She has been on heated high flow since. FiO2 requirements around 40 to 45% at this time. Family updated. Paralytics discontinued. Patient was extubated on 12/01/2020. She is still tired and exhausted. Speech swallow eval is ordered and patient is eating regular food. She has not had a bowel movement yet. Patient agreeable to take stool softener and MiraLAX. I will order that for her today. Respiratory culture is negative, procalcitonin level normal. Will complete Levaquin for 7 days total. Protonix once daily. For skin rash I have ordered zinc oxide cream. We will continue patient on Viibryd 10 mg daily for 7 days and then escalate up to 20 and 30 and then 40. Go up by [address] Calvillo following. We may use clonazepam at a very low dose if absolutely needed I will hold off for now. I will consider addition of Ritalin in the next 1 to 2 days if patient continues to be overly exhausted. Physical therapy has been ordered. We will continue to work with respiratory therapy to wean down oxygen when able. Fluid: Not indicated: Electrolyte: Replete as needed Nutrition: Cardiac diet Activity: Increase as tolerated. Status: Acute (2) ARDS (adult respiratory distress syndrome): Status: Acute (3) Pneumonia due to severe acute respiratory syndrome coronavirus 2 (SARS-CoV-2): Status: Acute (4) Obesity: Status: Acute Attestations Medical Necessity Statement*: On high flow nasal cannula. 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
[2020-12-04 11:18] LABS: Glucose Point of Care 97 mg/dL (70-110)
--- NOTE | 2020-12-04 11:18 | PC.SOCIAL ---
IMM Updated Updated pt's mother on Pg 2 IMM. No questions voiced. Provided pt a copy. Initialed, dated, & timed copy in chart.
[2020-12-04] MEDS: CLONazepam 0.5 mg Tablet 0.25 MG PO (15:40)
[2020-12-04 17:12] LABS: Glucose Point of Care 147 mg/dL (70-110)
[2020-12-04 20:31] LABS: Glucose Point of Care 112 mg/dL (70-110)
[2020-12-05] VITALS (14 sets, daily range): BP systolic 102–126; BP diastolic 67–88; PULSE 71–124; RESP 16–20; TEMP 36.6–37.2; O2SAT 92–98
[2020-12-05] MEDS: ipratropium-albuterol 3 mL Neb INHALATION ×4 (03:00→20:40)
[2020-12-05 06:21] LABS: Glucose Point of Care 96 mg/dL (70-110)
--- NOTE | 2020-12-05 08:17 | PM.PN ---
Subjective Subjective: Interval history: Seen and examined this morning. Patient states she feels a little bit better compared to before. Her oxygen requirements today are FiO2 35%, 40 L. She states the soreness on her thigh has improved with zinc oxide cream. She appeared very happy and energetic this morning. She was seen sitting up in the recliner. She states that she feels a lot better as well. Once overnight. Patient also had a bowel movement. She is eating and drinking well as well. She is taking the Viibryd as well. She does states she has been experiencing some anxiety and did get 1 dose of Klonopin yesterday evening. I will put a standing dose for her today. Medications: Reviewed: Yes Vitals/I&O/Wt Last Vital Signs Temp 98.7 F 12/05/20 07:19 Pulse 78 12/05/20 07:19 Resp 18 12/05/20 07:19 BP 112/76 12/05/20 07:19 Pulse Ox 98 12/05/20 07:19 12/04/20 12/05/20 12/05/20 22:59 06:59 14:59 Output Total 300 / 300 100 / 400 Balance -300 / 450 -100 / 350 Physical Exam Narrative: EXAM NARRATIVE: General: Alert oriented. On heated high flow 35% FiO2, 40 L. Appearing much better compared to previous days. Neck: Unable to assess JVD due to body habitus Auscultation: Clear to auscultation anterior lung nelson, lungs sound much more clear today compared to previous days. Cardiovascular: Not very tachycardic today compared to previous days. S1-S2 present, no murmur, no peripheral edema. Abdomen: Soft, obese rounded abdomen, bowel sounds positive Skin: Right medial thigh 3 x 4 inch bruise. Patient using zinc oxide cream.. Urinary Catheter Management^: Edwards: Cath Placed During This Visit: yes, but has since been removed by the nurse Reason for Continuing Indwelling Catheter: Accurate Measurement of Urinary Output in Critically Ill Patients Urinary Catheter Date of Insertion: 11/27/20 Date Urinary Catheter Removed: 12/03/20 Time Urinary Catheter Discontinued: 18:45 Data : 12/04/20 04:17 12/04/20 04:17 A&P Assessment and plan (1) COVID-19: #SARS-CoV-2 pneumonia leading to ARDS #Mild to moderate major depressive disorder Patient initially was intubated and sedated when she arrived to the ER. She was prone twice and able to be extubated 12/01/2020. She has been on heated high flow since. FiO2 requirements around 40 to 45% at this time. Family updated. Paralytics discontinued. Patient was extubated on 12/01/2020. She is still tired and exhausted. Speech swallow eval is ordered and patient is eating regular food. Patient did have a bowel movement. She feels really well today. Respiratory culture is negative, procalcitonin level normal. 70s of Levaquin to complete today 12/05/2020. Protonix once daily. We will continue to use zinc oxide cream for left medial thigh rash. We will continue patient on Viibryd 10 mg daily for 7 days and then escalate up to 20 and 30 and then 40. Go up by [address] Calvillo following. For anxiety patient did get 1 dose of Klonopin yesterday evening. I will put a standard dose of Klonopin 0.25 mg twice daily starting today. Due to patient's improvement in mood, energy and willingness to get better I will hold off on starting Reglan on her. I do not believe we will be needing that. She does not appear exhausted as she was in the previous days. Physical therapy has been ordered. We will continue to work with respiratory therapy to wean down oxygen when able. Fluid: Not indicated: Electrolyte: Replete as needed Nutrition: Cardiac diet Activity: Increase as tolerated. DVT prophylaxis: Lovenox 40 twice daily. Disposition: Due to patient's continued clinical improvement patient possibly may be able to get discharged in the next for 5 days. Status: Acute (2) ARDS (adult respiratory distress syndrome): Status: Acute (3) Pneumonia due to severe acute respiratory syndrome coronavirus 2 (SARS-CoV-2): Status: Acute (4) Obesity: Status: Acute Attestations Medical Necessity Statement*: Still requiring 35% FiO2, 40 L. Time Spent in Patient Care: less than 15 minutes Coding Level of Care Code Acute Tank Systems Maintainer for [facility] Diagnoses COVID-19 U07.1 ARDS (adult respiratory distress syndrome) J80 Pneumonia due to severe acute respiratory syndrome coronavirus 2 (SARS-CoV-2) U07.1; J12.82 Obesity E66.9
[2020-12-05] MEDS: enoxaparin 40 mg/0.4 mL Syringe SUBCUT ×2 (08:28→20:24)
[2020-12-05] MEDS: pantoprazole 40 mg SDV IVP (08:28)
[2020-12-05] MEDS: budesonide 0.5 mg/2 mL Neb INHALATION ×2 (09:00→20:52)
[2020-12-05 11:15] LABS: Glucose Point of Care 100 mg/dL (70-110)
[2020-12-05] MEDS: levofloxacin-dextrose 5 % 750 MG/150 ML PREMIX 100 MG IV (11:46)
[2020-12-05] MEDS: dexamethasone 10 mg/mL INJ 6 MG IVP (11:46)
--- NOTE | 2020-12-05 13:05 | PM.TOC ---
Transition of Care Summary Hospital Course: Patient initially was intubated and sedated when she arrived to the ER. She was prone twice and able to be extubated 12/01/2020. She has been on heated high flow since. FiO2 requirements around 40 to 45% at this time. Family updated. Paralytics discontinued. Patient was extubated on 12/01/2020. She is still tired and exhausted. Speech swallow eval is ordered and patient is eating regular food. She is also completed of 7 days of Levaquin total today 10?05/2020. 10 days of dexamethasone is to complete 12/06/2020. She is also being seen by Dr. Calvillo psychiatrist. She has been started on Viibryd 10 mg daily for 7 days and escalate up to 20 and then 30 and then 40 by increments of 10 mg every week. Patient's medication has been brought in from home since it is nonformulary. Nurses are splitting it on the floor and giving it to her. Patient has also been experiencing some anxiety and did receive a dose of Klonopin yesterday evening. Klonopin 0.25 twice daily has been added today. Patient's oxygen requirements are going lower and lower every day. She is improving very nicely. Hopefully she can be transitioned to nasal cannula in the next few days. Provider Assuming Care: Next clinician assuming care: Sara Oh
--- NOTE | 2020-12-05 13:47 | PC.NURSE ---
Rcvd order from Dr Vazquez for Klonopin 0.25 once now. curriculum writer put orders in.
[2020-12-05] MEDS: CLONazepam 0.5 mg Tablet 0.25 MG PO ×2 (13:53→17:29)
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
[2020-12-05 16:53] LABS: Glucose Point of Care 130 mg/dL (70-110)
[2020-12-05 20:48] LABS: Glucose Point of Care 103 mg/dL (70-110)
--- NOTE | 2020-12-05 23:07 | PC.NURSE ---
i reported high pulse 103 to nurse
[2020-12-06] VITALS (11 sets, daily range): BP systolic 100–120; BP diastolic 60–86; PULSE 73–117; RESP 18–20; TEMP 36.4–36.8; O2SAT 87–96
[2020-12-06] MEDS: ipratropium-albuterol 3 mL Neb INHALATION ×3 (03:21→15:00)
[2020-12-06 06:45] LABS: Glucose Point of Care 85 mg/dL (70-110)
[2020-12-06] MEDS: enoxaparin 40 mg/0.4 mL Syringe SUBCUT (08:19)
[2020-12-06] MEDS: CLONazepam 0.5 mg Tablet 0.25 MG PO ×2 (08:19→19:29)
[2020-12-06] MEDS: budesonide 0.5 mg/2 mL Neb INHALATION ×2 (09:00→21:55)
[2020-12-06] MEDS: pantoprazole 40 mg SDV IVP (09:28)
[2020-12-06] MEDS: dexamethasone 10 mg/mL INJ 6 MG IVP (11:42)
[2020-12-06 12:16] LABS: Glucose Point of Care 112 mg/dL (70-110)
--- NOTE | 2020-12-06 13:25 | PC.SOCIAL ---
IMM Update pg 2 of IMM updated and reviewed w/ patient. Copy provided.
[2020-12-06 17:14] LABS: Glucose Point of Care 114 mg/dL (70-110)
--- NOTE | 2020-12-06 17:32 | P.PN_ITS ---
Subjective Subjective: Interval history: Patient was seen and examined this morning, and went to the bathroom on her own 3 to 4 L of oxygen via nasal cannula, endorsing improvement in energy and w illing to go home by tomorrow No overnight events No decompensation of her depression Endorsing regular bowel movement, Vitals/I&O/Wt Last Vital Signs Temp 97.7 F 12/06/20 15:26 Pulse 111 H 12/06/20 15:26 Resp 18 12/06/20 15:26 BP 100/60 12/06/20 15:26 Pulse Ox 95 12/06/20 15:26 12/06/20 12/06/20 12/06/20 06:59 14:59 22:59 Intake Total 200 / 200 Balance 200 / 200 Physical Exam Narrative: EXAM NARRATIVE: Patient was sitting in her chair She has ulcer around left thigh medial area however no active cellulitis Ulcer seems to be healing with good granulation tissue Morbidly obese S1, S2 sinus tachycardia Distended abdomen visceral obesity Facial flushing EOMI, PERRLA No acute respite distress saturating well on 3 L nasal cannula Multiple skin tattoos noted Urinary Catheter Management^: Edwards: Cath Placed During This Visit: yes, but has since been removed by the nurse Reason for Continuing Indwelling Catheter: Accurate Measurement of Urinary Output in Critically Ill Patients Urinary Catheter Date of Insertion: 11/27/20 Date Urinary Catheter Removed: 12/03/20 Time Urinary Catheter Discontinued: 18:45 Data : 12/04/20 04:17 12/04/20 04:17 A&P Assessment and plan (1) ARDS (adult respiratory distress syndrome): Status: Acute (2) Obesity: Status: Acute (3) Pneumonia due to severe acute respiratory syndrome coronavirus 2 (SARS-CoV-2): Status: Acute (4) Major depression in partial remission: Status: Acute (5) Functional neurological symptom disorder with attacks or seizures: Status: Acute (6) Hypoxia: Status: Acute (7) COVID-19: Status: Acute (8) Sleepwalking disorder: Status: Acute (9) Post-traumatic stress disorder, chronic: Status: Acute Additional A&P Information COVID-19 Morbid obesity ARDS Status post proning Status post Actemra Successfully extubated to nasal cannula Patient is currently doing well, endorsing improvement in her energy, her mood has been stable, wean off oxygen currently doing well on 3 L nasal cannula, endorsing regular bowel movement, plan to discharge her home tomorrow if clinically stays stable Status post antibiotic Levaquin, status post Actemra, extubated 12/01 No signs of ICU related delirium or myopathy at this point Patient is independently ambulating in the room Endorsing improvement in her appetite We will continue patient on Viibryd 10 mg daily for 7 days and then escalate up to 20 and 30 and then 40. Go up by 10 mg every week. Klonopin 0.25 mg twice daily Hold off on Ritalin Full code Regular diet DVT prophylaxis Lovenox, de-escalate to once daily Discontinue steroids Attestations Medical Necessity Statement*: Anticipating discharge tomorrow Time Spent in Patient Care: less than 15 minutes Coding Level of Care Code Acute Certified Prosthetist/Orthotist for [facility] Diagnoses ARDS (adult respiratory distress syndrome) J80 Obesity E66.9 Pneumonia due to severe acute respiratory syndrome coronavirus 2 (SARS-CoV-2) U07.1; J12.82 Major depression in partial remission F32.4 Functional neurological symptom disorder with attacks or seizures F44.5 Hypoxia R09.02 COVID-19 U07.1 Sleepwalking disorder F51.3 Post-traumatic stress disorder, chronic F43.12
[2020-12-06 20:25] LABS: Glucose Point of Care 111 mg/dL (70-110)
[2020-12-07] VITALS (7 sets, daily range): BP systolic 108–129; BP diastolic 64–87; PULSE 84–106; RESP 17–20; TEMP 36.4–37.1; O2SAT 94–98
--- NOTE | 2020-12-07 06:03 | PC.NURSE ---
Patient AAOx4, refusing telemetry-- removed it from chart. OOBTC, repositioning self. No c/o pain, no needs at this time, no new events, VSS. Room clutter free and call light in reach. WIll report and handoff patient to oncoming nurse at shift change.
[2020-12-07 06:12] LABS: Basophils % 0.3 %; Eosinophils % 0.6 %; Hematocrit 42.3 % (37.0-47.0); Hemoglobin 13.5 g/dL (11.5-15.3); Lymphocytes # 2.9 10^3/uL (0.8-4.8); Mean Corpuscular HGB Conc 31.9 g/dL (30.0-36.0); Mean Corpuscular Hemoglobin 29.9 pg (28.0-34.0); Mean Corpuscular Volume 93.6 fl (81-99); Mean Platelet Volume 10.4 fL (7.4-10.4); Monocytes # 0.5 10^3/uL (0.2-0.9); Monocytes % 7.3 %; Neutrophils # 3.55 10^3/uL (1.8-7.7); Neutrophils % 50.1 %; Nucleated Red Blood Cells % 0 %; Platelet Count 242 10^3/cmm (130-400); Red Blood Count 4.52 10^6/uL (4.1-5.3); Red Cell Distribution Width 13.4 % (12.1-15.1); White Blood Count 7.1 10^3/uL (4.0-10.0)
[2020-12-07 06:48] LABS: Anion Gap 12.3 (5-19); Blood Urea Nitrogen 15 mg/dL (6-20); Calcium 8.7 mg/dL (8.5-10.5); Carbon Dioxide 26 mmol/L (22-29); Chloride 105 mmol/L (98-107); Glomerular Filtration Rate 113.1 mL/min (90-130); Glucose 93 mg/dL (65-115); Osmolality Calculated 291 mOsm/kg (285-295); Potassium 3.3 mmol/L (3.5-5.1); Sodium 140 mmol/L (136-145)
[2020-12-07 06:53] LABS: Glucose Point of Care 77 mg/dL (70-110)
[2020-12-07 06:53] LABS: Procalcitonin 0.07 ng/mL (0-0.5)
[2020-12-07] MEDS: budesonide 0.5 mg/2 mL Neb INHALATION (08:48)
[2020-12-07] MEDS: levalbuterol 0.63 mg/3 mL Neb INHALATION (08:48)
[2020-12-07] MEDS: pantoprazole 40 mg SDV IVP (09:11)
[2020-12-07] MEDS: CLONazepam 0.5 mg Tablet 0.25 MG PO (09:11)
[2020-12-07] MEDS: enoxaparin 40 mg/0.4 mL Syringe SUBCUT (09:11)
[2020-12-07] MEDS: potassium chloride ER 20 mEq Tablet 40 MEQ PO (09:11)
--- NOTE | 2020-12-07 10:29 | PC.CHAP ---
Pastoral Care Encounter/Spiritual Assessment Type of Contact [] Declined police academy instructor visit [] Patient/Family/Request visit [] Outpatient visit [] Follow-up visit [] Physician referral [] Code/Alert [] Routine visit [] Staff referral [] Actively dying [] Patient sleeping [] Family support [] [] Out of room [] Palliative care [] [] Receiving care in room [] Pre-surgical visit [] Trauma [] Long length of stay [] ICU visit [x] Other: isolation Relational/Emotional Strength [] Patient feels connected with others/family/visitors/staff [] Distress [] Loneliness/isolation [] Abandonment Spirituality of Patient [] Person of Yareli [] Attends Alevism of their Yareli [] Believes in Prayer [] Reads Bible or Amish materials [] There are Spiritual issues to be addressed Negotiations Director Interventions [] Prayer [] Active listening [] Non-anxious presence [] Spiritual/emotional support [] Crisis/trauma care [] Spiritual counseling [] Bereavement support [] Provided bereavement packet [] Provided Bible/devotional materials [] Provided toy/stuffed animal, coloring book to patient or family member [] Provided Communion [] Anointing/[place] [] Salvation [] Completed spiritual assessment [] Other: Impact on Illness or Injury [] Angry [] Fearful [] Anxious [] Often cries [] Exhaustion [] Unable to work [] Unable to attend latter-day [] Unable to walk/stand [] Unable to read [] Unable to drive [] Unable to eat/drink [] Unable to sleep [] Unable to be with family [] Patient intubated [] Other: Summary Time spent with patient
--- NOTE | 2020-12-07 11:02 | P.DS_ITS ---
Discharge Providers Date of Admission: 11/27/20 14:07 Date of Discharge: December 07, 2020 Attending Provider at Admission: Sara Oh MD Attending Provider at Discharge: Sara Oh MD Primary Care Provider: LUCAS Tristan Diagnoses at Discharge Discharge Diagnosis (1) ARDS (adult respiratory distress syndrome): Status: Acute (2) Obesity: Status: Acute (3) Pneumonia due to severe acute respiratory syndrome coronavirus 2 (SARS-CoV-2): Status: Acute (4) Major depression in partial remission: Status: Acute (5) Functional neurological symptom disorder with attacks or seizures: Status: Acute (6) Hypoxia: Status: Acute (7) COVID-19: Status: Acute (8) Sleepwalking disorder: Status: Acute (9) Post-traumatic stress disorder, chronic: Status: Acute Reason for Visit Reason for Visit: RESP DISTRESS Hospital Course Hospital Course Patient got admitted on 11/27 for management of hypoxic respiratory failure seco ndary to COVID-19. She was intubated in the ER because of worsening of shortness of breath when she failed BiPAP. Initially there was concern regarding her BMI and proning however starting Sunday, Dr. Nash with the help of multiple nurses did try 2 proning sessions which improved her oxygenation. She got extubated 12/01/2020. After extubation FiO2 requirements was around 40 to 45%. During her hospitalization she was treated with therapeutic dose of Lovenox for concern of PE which was descalated later on. She completed courses of Levaquin Decadron, remdesivir and Actemra 1 dose. For her psychiatric history psychiatrist was consulted. She was started on Viibryd 10 mg daily for 7 days with instructions to increment of 10 mg every week until 40 mg optimal dosages achieved. Her oxygen requirement improved, at the time of discharge she qualified for 3 L of FiO2 via nasal cannula, At the time of discharge she was given albuterol, antidepressant and outpatient follow-up with Dr. Nash In total she spent 10 days in the hospital. Physical Exam Narrative: EXAM NARRATIVE: morbidly obese female Was saturating well on 3 L nasal cannula Endorsing improvement in her energy and mood S1, S2 Distended abdomen visceral obesity Left thigh ulcer with good granulation tissue no active cellulitis Bilateral breath sounds no adventitious rhonchi or crackles at the time of my evaluation Awake alert 20x3 GCS 3 no focal deficit Urinary Catheter Management^: Edwards: Cath Placed During This Visit: yes, but has since been removed by the nurse Reason for Continuing Indwelling Catheter: Accurate Measurement of Urinary Output in Critically Ill Patients Urinary Catheter Date of Insertion: 11/27/20 Date Urinary Catheter Removed: 12/03/20 Time Urinary Catheter Discontinued: 18:45 Discharge Data Data Completed and Pending: Completed Studies During Hospitalization Category Date Time Status CT angio chest PE protcl [id number] Stat Cat Scan 11/27/20 17:22 Completed CXRP [XR chest 1V portable [id number]] R outine Exams 11/27/20 14:54 Completed CXRP [XR chest 1V portable [id number]] S tat Exams 11/28/20 04:12 Completed XR chest 1V mayuri ble [id number] Routine Exams 12/01/20 01:59 Completed XR chest 1V mayuri ble [id number] Stat Exams 11/27/20 11:06 [place] [id number] Routin e Ultrasound 11/29/20 11:48 Completed CV. echo limited [id number] Routine Ultrasound 11/29/20 15:52 Completed Labs from last 24 hours 12/07/20 12/07/20 12/07/20 06:35 05:52 05:52 WBC 7.1 RBC 4.52 Hgb 13.5 Hct 42.3 MCV 93.6 MCH 29.9 MCHC 31.9 RDW 13.4 Plt Count 242 MPV 10.4 Neut % (Auto) 50.1 Lymph % (Auto) 41.0 [place] % (Auto) 7.3 Eos % (Auto) 0.6 Baso % (Auto) 0.3 Neut # (Auto) 3.55 Lymph # (Auto) 2.9 [place] # (Auto) 0.5 Eos # (Auto) 0.0 Baso # (Auto) 0.0 Nucleated RBC % (a uto) 0 Nucleated RBCs # 0.0 Sodium 140 Potassium 3.3 L Chloride 105 Carbon Dioxide 26 Anion Gap 12.3 BUN 15 Creatinine 0.6 GFR Calculation 113.1 Glucose 93 POC Glucose 77 Calculated Osmolal ity 291 Calcium 8.7 Procalcitonin 0.07 12/06/20 12/06/20 12/06/20 20:23 17:10 11:58 WBC RBC Hgb Hct MCV MCH MCHC RDW Plt Count MPV Neut % (Auto) Lymph % (Auto) [place] % (Auto) Eos % (Auto) Baso % (Auto) Neut # (Auto) Lymph # (Auto) [place] # (Auto) Eos # (Auto) Baso # (Auto) Nucleated RBC % (a uto) Nucleated RBCs # Sodium Potassium Chloride Carbon Dioxide Anion Gap BUN Creatinine GFR Calculation Glucose POC Glucose 111 H 114 H 112 H Calculated Osmolal ity Calcium Procalcitonin Vitals: Last Vital Signs Temp 97.6 F 12/07/20 11:01 Pulse 106 H 12/07/20 11:01 Resp 18 12/07/20 11:01 BP 129/87 12/07/20 11:01 Pulse Ox 94 12/07/20 11:01 Discharge Plan Discharge Patient Disposition: Home Health Service Condition: Stable Prescriptions: New albuterol sulfate 90 mcg/actuation HFA aerosol inhaler 2 inh inhalation Q6H PRN (Reason: shortness of breath or wheezing) Qty: 8.5 RF: 1 Viibryd 20 mg tablet 20 mg PO DAILY 7 Days Qty: 7 RF: 0 Viibryd 40 mg tablet 40 mg PO DAILY Qty: 30 RF: 0 Continued Vicks Dayquil Mucus Control DM 10-200 mg/15 mL liquid 15 ml PO BID PRN (Reason: Congestion) RF: 0 Changed Klonopin 1 mg tablet 0.5 mg PO BID 30 Days Qty: 60 RF: 1 Discontinued dexamethasone 2 mg tablet 6 mg PO DAILY 8 Days Qty: 24 RF: 0 Viibryd 40 mg tablet 40 mg PO DAILY Qty: 30 RF: 0 Discharge Orders: Discharge Order (Routine); Ordered 12/07/20 Ordered By: Sara Oh Other Ambulatory Orders: DME: Oxygen (Order) Location: None Selected Ordered By: Sara Oh Referrals: [facility] [Other] (This number is to set up assistance w/ helping w/ housework and bathing, etc. Call the number and you will be asked a series of questions. You will be given points based off your answers. And the points will determine what type of services you qualify for.) [facility] [Other] (May be able to help you with the [facility]) [facility] [Other] [facility] [place] [facility] [place], [Staff Physician] - 7-10 days (PLEASE COME IN FILL OUT PAPERS FOR APPOINTMENT, ) Teddy Nash MD [Physician] - 4-7 days Alea Servin MD [Physician] - 12/16/20 9:30 am Edgar Neumann PA [Primary Care Provider] - 4-7 days (WALK IN APPOINTMENT ANY DAY 9-12 AM. OR 14-5:30 pm for APPOINTMENT) Discharge Diet: Regular Discharge Activity: Resume usual activity and Increase activity as tolerated Patient Instructions: Albuterol (By breathing), Vilazodone (By mouth), Using Oxygen at Home (GEN), Hypoxia (GEN), Opioid Safety Discharge Attestations Time Spent in Discharge Care*: less than 30 min Quality Metrics Clinical Quality Measures During this hospital stay, did patient experience: None Coding Level of Care Code Acute g [facility] note Diagnoses ARDS (adult respiratory distress syndrome) J80 Obesity E66.9 Pneumonia due to severe acute respiratory syndrome coronavirus 2 (SARS-CoV-2) U07.1; J12.82 Major depression in partial remission F32.4 Functional neurological symptom disorder with attacks or seizures F44.5 Hypoxia R09.02 COVID-19 U07.1 Sleepwalking disorder F51.3 Post-traumatic stress disorder, chronic F43.12
[2020-12-07 11:21] LABS: Glucose Point of Care 94 mg/dL (70-110)
--- NOTE | 2020-12-07 12:34 | PC.NURSE ---
PT HAS DONE WELL FOR ME TODAY. NO COMPLAINTS OF PAIN. PT IS DOING GOOD ON 3L NC. SHE IS UP AMBULATING IN THE ROOM AND TOLERATING THAT WELL. PT SHOULD DISCHARGE TODAY PER HOSPITALIST. HOSPITALIST ROUNDED WITH PT AND INFORMED PT SHE WILL BE DISCHARGING TODAY. DOCTOR ORDERED TO REMOVE IJ OUT OF PTS NECK. IJ WAS REMOVED. NO BLEEDING. PRESSURE DRESSING WAS APPLIED FOR PREVENTIVE MEASURES. PT TOLERATED THIS WELL. DISCHARGE PAPERWORK WAS GONE OVER WITH PT. PRESCRIPTIONS SENT TO PHARMACY OF PTS CHOICE. ALL QUESTIONS ANSWERED. PT WAS SAFELY WHEELED OUT BY THIS NURSE AT 1209.
--- NOTE | 2020-12-08 10:58 | PC.SOCIAL ---
discharge follow up call made, spoke with patient. patient received medications from the pharmacy and she is using as directed. patient is aware of change in Klonopin and discontinued medications. patient is using O2 at 3L and tolerating well. patient and mother have made all follow up appointments. patient denies any questions or concerns. Patient made a call for independent home services.
== END 2020-12-07 12:09 | disposition home health service (06) | DRG 208 ==
LOC: ER 13:54 → ICU 14:18 → MEDSURG 12-03 18:00
PROVIDERS: Internal Medicine; Admitting Provider Internal Medicine; Emergency Provider Family Medicine; PCP Emergency Medicine; Visit Provider Internal Medicine
DX: U07.1 COVID-19 (principal); J12.82 Pneumonia due to coronavirus disease 2019; J80 Acute respiratory distress syndrome; Z68.43 Body mass index [BMI] 50.0-59.9, adult; G47.33 Obstructive sleep apnea (adult) (pediatric); E66.01 Morbid (severe) obesity due to excess calories; G43.711 Chronic migraine without aura, intractable, with status migrainosus; F42.4 Excoriation (skin-picking) disorder; F43.12 Post-traumatic stress disorder, chronic; I95.9 Hypotension, unspecified; F44.5 Conversion disorder with seizures or convulsions; F32.4 Major depressive disorder, single episode, in partial remission; F51.3 Sleepwalking [somnambulism]; I51.7 Cardiomegaly
CPT/HCPCS: 31500; 36415; 36416; 36556; 36592; 36600; 71045; 71275; 80048; 80051; 80053; 81001; 82330; 82803; 82805; 82962; 83605; 83735; 83880; 84100; 84145; 85025; 85378; 86140; 86403; 87070; 87205; 87449; 87641; 92523; 92524; 92526; 92610; 93005; 93308; 93970; 94002; 94003; 94640; 94799; 96365; 96366; 96367; 96372; 96375; 97110; 97116; 97162; 97530; 99291; 99292; C1751; C9113; J0330; J1100; J1650; J1815; J1940; J1956; J2250; J2405; J2704; J3010; J3262; J3480; J3490; J7050; J7614; J7626; J7799; Q9967

== ENCOUNTER 2020-12-31 19:03 | Emergency (ER) | payer MEDICARE, MEDICAID, SELFPAY ==
[2019-12-23 16:26] VITALS: BP 136/98; BMI 56.1
[2020-12-31 19:07] VITALS: BP 150/89; PULSE 101; RESP 18; TEMP 36.2; O2SAT 100; BMI 49.6
[2020-12-31 20:30] LABS: Protein Urine Neg (Negative); Urine Appearance Hazy (CLEAR); Urine Color Yellow (Yellow); pH Urine 5 (5-7)
[2020-12-31 20:31] LABS: Add Urine Culture? No; Add Urine Microscopic? YES; Bacteria Urine 2+ /hpf; Bilirubin Urine Neg (Negative); Blood Urine 2+ (Negative); Glucose Urine UA Norm (Normal); Ketones Urine 1+ (Negative); Leukocyte Esterase Urine 2+ (Negative); Nitrate Urine Negative (Negative); Squamous Epithelial Cell Urine 40-55 /hpf (0-5); Trichomonas Urine 1+ /hpf; Urobilinogen Urine 1 mg/dL (Negative); WBC Urine 40-55 /hpf (0-5)
--- NOTE | 2020-12-31 20:36 | W.ED.BACK ---
HPI - Back Pain/Injury General: Chief Complaint: Back Pain/Injury Stated Complaint: Back Pain Time Seen by Provider: 12/31/20 20:35 History of Present Illness: HPI Narrative: 35-year-old female comes in today with complaints of low back pain radiating to her left leg. Patient appears well. Patient is obese. Patient recently had COVID-19 in which she had to be ventilated. Patient does report some abnormal vaginal discharge. Review of Systems General: Reports: 10 or more systems reviewed and unremarkable except in HPI and below Musc: Reports: back pain PFSH ED PFSH: Medical History Bulimia nervosa in remission Chronic migraine without aura, intractable, with status migrainosus Common migraine with intractable migraine Excoriation (skin-picking) disorder Functional neurological symptom disorder with attacks or seizures History of COVID-19 Hypersomnia Major depressive disorder Migraine Obesity Obstructive sleep apnea Other half-way (current) drug therapy Post-traumatic stress disorder, chronic Psychiatric care Sleepwalking disorder Suspected COVID-19 virus infection Viral URI with cough Surgical History H/O tubal ligation History of kidney surgery Family History Other CAD (coronary artery disease) Diabetes Hypertension Denies family history of Cancer Stroke Social History Alcohol intake: current Alcohol intake frequency: few times a month Desire information about substance/drug rehabilitation?: No History of recent travel: No Current gender identity: Female Female Reproductive History: Spontaneous abortions: No Physical Exam Const: COMMON NORMALS: no acute distress and patient oriented x3 GENERAL APPEARANCE: cooperative HENMT: COMMON NORMALS: normocephalic, TM's normal bilaterally and Normal external nose present HEAD & SCALP: normal to inspection and normocephalic NOSE: Normal external nose present TYMPANIC MEMBRANE: TM's normal bilaterally MOUTH: Normal oral and palatal mucosa present THROAT: posterior oropharynx normal Eye: GENERAL EYE: appearance normal, both eyes and all related structures Neck/C-Spine: COMMON NORMALS: full ROM Lymph: LYMPHATIC: no lymphadenopathy noted Chest: COMMONS NORMALS: normal inspection of the chest Resp: COMMON NORMALS: normal respiratory effort EFFORT & INSPECTION: Yes able to speak in complete sentences Cardio: COMMON NORMALS: regular rate and regular rhythm RATE: regular rate RHYTHM: regular rhythm GI: COMMON NORMALS: non-tender : COMMON NORMALS: Yes no CVA tenderness BLADDER/KIDNEY EXAM: Yes no CVA tenderness Back/Pelvis: COMMON NORMALS: no CVA tenderness and thoracic and lumbar spine normal to inspection Extremity: COMMON NORMALS: normal to inspection Neuro: COMMON NORMALS: patient oriented x3 and moves all extremities Psych: COMMON NORMALS: mental status grossly normal and cooperative Skin: COMMON NORMALS: no rashes or lesions noted GENERAL SKIN EXAM: no rashes or lesions noted Course Vital Signs: Vital signs: Vital Signs Temperature 97.1 F L 12/31/20 19:07 Pulse Rate 107 H 12/31/20 20:43 Respiratory Rate 18 12/31/20 19:07 Blood Pressure 150/89 12/31/20 19:07 Pulse Oximetry 98 12/31/20 20:43 MDM - Back Pain/Injury MDM Narrative: Medical decision making narrative: Patient presents today with complaints of low back pain with radiation into the left leg. Patient also reports some urinary discomfort. On exam patient appears unwell but has recently been discharged after intubation and treatment for COVID-19. Patient maintains home oxygen. Patient's lung sounds are clear throughout. Skin is warm and dry. No edema is noted in the extremity. Vital signs are normal except for some mild elevation in blood pressure at 150 systolic. Differential diagnosis includes but not limited to low back pain with sciatica, urinary tract infection, STI. Urinalysis came back positive for trichomonas. Chest x-ray was done due to patient complaining of some respiratory difficulty but states that it is really not much different than her usual at this time. Chest x-ray appeared to have some patchy infiltrates seem to be improving from prior exam 1 month ago. We will start patient on some metronidazole 500 twice a day for 7 days. Patient was given some naproxen and tizanidine for her back pain. Patient should follow-up with primary care or return to the ER for worsening symptoms. Lab Data: Labs: Lab Results 12/31/20 20:05 Urine Color Yellow (Yellow) Urine Appearance Hazy A (CLEAR) Urine pH 5 (5-7) Ur Specific Gravit y 1.020 (1.005-1.030) Urine Protein Neg (Negative) Urine Glucose (UA) Norm (Normal) Urine Ketones 1+ H (Negative) Urine Blood 2+ H (Negative) Urine Nitrate Negative (Negative) Urine Bilirubin Neg (Negative) Urine Urobilinogen 1 mg/dL H mg/dL (Negative) Ur Leukocyte Vandana ase 2+ H (Negative) Urine RBC 10-15 /hpf H /hpf (0-2) Urine WBC 40-55 /hpf H /hpf (0-5) Ur Squamous Epith Cells 40-55 /hpf H /hpf (0-5) Amorphous Sediment Not Reportable Urine Bacteria 2+ /hpf H /hpf (NONE) Urine Trichomonas 1+ /hpf H /hpf Discharge Plan Discharge Patient Disposition: Home Clinical Impression: Post-COVID chronic fatigue, Trichomonal urethritis Sciatica Qualifiers: Laterality: left Qualified Code(s): M54.32 - Sciatica, left side Condition: Stable Prescriptions: New metronidazole 500 mg tablet 500 mg PO BID 7 Days Qty: 14 RF: 0 naproxen 500 mg tablet 500 mg PO BID Qty: 20 RF: 0 tizanidine 4 mg tablet 4 mg PO Q8H PRN (Reason: muscle spasticity, back pain) Qty: 14 RF: 0 No Action metformin 500 mg tablet extended release 24 hr 500 mg PO DAILY 90 Days Qty: 90 RF: 0 albuterol sulfate 90 mcg/actuation HFA aerosol inhaler 2 inh inhalation Q6H PRN (Reason: shortness of breath or wheezing) Qty: 8.5 RF: 1 Viibryd 40 mg tablet 40 mg PO DAILY Qty: 30 RF: 0 Klonopin 1 mg tablet 0.5 mg PO BID 30 Days Qty: 60 RF: 1 Discharge Orders: Discharge ED (Routine); Ordered 12/31/20 Ordered By: Kwadwo Gentile Referrals: Alea Servin MD [Primary Care Provider] - Discharge Diet: Usual diet Discharge Activity: Increase activity as tolerated Patient Instructions: Back Pain (ED), Opioid Safety Activity Restrictions/Additional Instructions: Maintain normal activity as much as possible. Take medication as needed for discomfort. Have urine rechecked in 1 week. Return to the ER for worsening symptoms such as high fever, increasing shortness of breath, or new concerns. Coding Level of Care Code ED Pediatric Occupational Therapist for g Fwd Exam Comprehensive
[2020-12-31 20:43] VITALS: PULSE 107; O2SAT 98
--- NOTE | 2020-12-31 20:45 | XRR_ITS ---
PROCEDURE INFORMATION: Exam: XR Chest Exam date and time: 12/31/2020 8:45 PM Age: 35 years old Clinical indication: Patient HX: Persistent cough post covid pneumonia. TECHNIQUE: Imaging protocol: XR of the chest. Views: 1 view. COMPARISON: CR (CHEST, ) 12/01/2020 2:08 AM FINDINGS: Lungs: Decreased inspiration. Mild interstitial opacities diffusely in the lungs, decreased compared with the previous study. Findings may represent persistent or recurrence pneumonia, including atypical and viral organisms. Pleural spaces: No pleural effusion. No pneumothorax. Heart/Mediastinum: The cardiac silhouette is mildly enlarged. Mediastinal contours are unremarkable. Bones/joints: Unremarkable for age. XR/XR chest 1V portable [id number] IMPRESSION: 1. Decreased inspiration. Mild interstitial opacities diffusely in the lungs, decreased compared with the previous study. Findings may represent persistent or recurrence pneumonia, including atypical and viral organisms. Recommend clinical correlation. Recommend followup chest imaging to insure resolution of these findings. 2. Incidental/nonacute findings are listed in the report. Radiation Dose CTDIVOL = (mGy): DLP = (mGy-cm)
[2020-12-31] MEDS: orphenadrine 30 mg/mL Inj 2 mL 60 MG IM (20:56)
[2020-12-31] MEDS: ketorolac 30 mg/mL INJ IM (20:56)
[2020-12-31] MEDS: metroNIDAZOLE 500 MG Tablet PO (20:56)
[2020-12-31 21:20] VITALS: PULSE 99; RESP 20; O2SAT 97
== END 2020-12-31 21:21 | disposition home or self-care (01) ==
PROVIDERS: Emergency Medicine; Emergency Provider Nurse Practitioner Family; PCP Family Medicine
DX: M54.50 Low back pain, unspecified (principal); M54.32 Sciatica, left side; R53.83 Other fatigue; U09.9 Post COVID-19 condition, unspecified; A59.03 Trichomonal cystitis and urethritis; E66.9 Obesity, unspecified; Z68.42 Body mass index [BMI] 45.0-49.9, adult; Z79.899 Other long term (current) drug therapy
CPT/HCPCS: 71045; 81001; 87491; 87591; 96372; 99283; J1885; J2360

== ENCOUNTER → 2021-01-05 07:58 | Outpatient (BNVA) | payer MEDICARE, MEDICAID, SELFPAY ==
[2019-12-23 16:26] VITALS: BP 136/98; BMI 56.1
== END ==
PROVIDERS: PCP Emergency Medicine; Visit Provider Psychiatry & Neurology Psychiatry
DX: F33.42 Major depressive disorder, recurrent, in full remission (principal); F43.12 Post-traumatic stress disorder, chronic; F44.5 Conversion disorder with seizures or convulsions; R53.82 Chronic fatigue, unspecified; U09.9 Post COVID-19 condition, unspecified; F51.3 Sleepwalking [somnambulism]
CPT/HCPCS: 99214

== ENCOUNTER → 2021-01-20 10:21 | Outpatient (BNVA) | payer MEDICARE, MEDICAID, SELFPAY ==
[2019-12-23 16:26] VITALS: BP 136/98; BMI 56.1
== END ==
PROVIDERS: PCP Family Medicine; Visit Provider Family Medicine
DX: N39.0 Urinary tract infection, site not specified (principal)
CPT/HCPCS: 81000

== ENCOUNTER → 2021-03-02 07:33 | Outpatient (BNVA) | payer MEDICARE, MEDICAID, SELFPAY ==
[2019-12-23 16:26] VITALS: BP 136/98; BMI 56.1
== END ==
PROVIDERS: PCP Family Medicine; Visit Provider Psychiatry & Neurology Psychiatry
DX: F33.42 Major depressive disorder, recurrent, in full remission (principal); F43.12 Post-traumatic stress disorder, chronic; F51.3 Sleepwalking [somnambulism]; R53.82 Chronic fatigue, unspecified; U09.9 Post COVID-19 condition, unspecified; F44.5 Conversion disorder with seizures or convulsions
CPT/HCPCS: 99214

== ENCOUNTER → 2021-03-17 10:45 | Outpatient (BNVA) | payer MEDICARE, MEDICAID, SELFPAY ==
[2019-12-23 16:26] VITALS: BP 136/98; BMI 56.1
== END ==
PROVIDERS: PCP Family Medicine; Visit Provider Family Medicine
DX: Z01.818 Encounter for other preprocedural examination (principal)
CPT/HCPCS: 80053; 80061; 83036; 84403

== ENCOUNTER → 2021-05-08 13:39 | Outpatient (BNVA) | payer MEDICARE, MEDICAID, SELFPAY ==
[2021-03-21 14:55] VITALS: BP 141/91; BMI 51.4
== END ==
PROVIDERS: PCP Family Medicine; Visit Provider Nurse Practitioner Family
DX: J11.1 Influenza due to unidentified influenza virus with other respiratory manifestations (principal)
CPT/HCPCS: 87400

== ENCOUNTER → 2021-06-06 11:30 | Outpatient (BNVA) | payer MEDICAID, SELFPAY ==
[2021-03-21 14:55] VITALS: BP 141/91; BMI 51.4
== END ==
PROVIDERS: PCP Family Medicine; Visit Provider Psychiatry & Neurology Psychiatry
DX: F43.12 Post-traumatic stress disorder, chronic (principal); F33.42 Major depressive disorder, recurrent, in full remission; F51.3 Sleepwalking [somnambulism]
CPT/HCPCS: 99214

== ENCOUNTER → 2021-07-08 07:12 | Outpatient (BNVA) | payer MEDICAID, SELFPAY ==
[2021-03-21 14:55] VITALS: BP 141/91; BMI 51.4
== END ==
PROVIDERS: PCP Family Medicine; Visit Provider Psychiatry & Neurology Psychiatry
DX: F33.2 Major depressive disorder, recurrent severe without psychotic features (principal); F43.12 Post-traumatic stress disorder, chronic; F51.3 Sleepwalking [somnambulism]
CPT/HCPCS: 99215

== ENCOUNTER → 2021-07-26 07:18 | Outpatient (BNVA) | payer MEDICAID, SELFPAY ==
[2021-03-21 14:55] VITALS: BP 141/91; BMI 51.4
== END ==
PROVIDERS: PCP Family Medicine; Visit Provider Psychiatry & Neurology Psychiatry
DX: F33.42 Major depressive disorder, recurrent, in full remission (principal); F43.12 Post-traumatic stress disorder, chronic; F51.3 Sleepwalking [somnambulism]
CPT/HCPCS: 99214

== ENCOUNTER 2021-09-24 18:28 | Emergency (ER) | payer MEDICAID, SELFPAY ==
[2021-03-21 14:55] VITALS: BP 141/91; BMI 51.4
[2021-09-24 18:36] VITALS: BP 182/79; PULSE 110; RESP 16; TEMP 36.4; O2SAT 97; BMI 50.8
--- NOTE | 2021-09-24 18:55 | XRR_ITS ---
PROCEDURE INFORMATION: Exam: XR Chest Exam date and time: 09/24/2021 7:00 PM Age: 35 years old Clinical indication: Shortness of breath; Patient HX: C/O worsening SOB. Was ventilated due to covid last November. TECHNIQUE: Imaging protocol: Radiologic exam of the chest. Views: 1 view. COMPARISON: CR XR chest 1V portable [id number] 12/31/2020 8:49 PM FINDINGS: Lungs: The lungs are underinflated and clear. Pleural spaces: Unremarkable. No pleural effusion. No pneumothorax. Heart/Mediastinum: Unremarkable. No cardiomegaly. Bones/joints: Unremarkable. XR/XR chest 1V portable [id number] IMPRESSION: No acute cardiopulmonary abnormality.
--- NOTE | 2021-09-24 18:55 | ECG_ITS ---
[facility] Test Date: 2021-09-24 Pat Name: Verito Harmon Department: Room: Gender: Female Residential Housekeeper: : 1985 Requested By: Angelita Moody Order Number: [id number] Malu MD: Debbie Conti M.D. Measurements Intervals [place] Rate: 96 P: 48 NV: 131 QRS: 15 QRSD: 76 T: 3 QT: 325 QTc: 411 Interpretive Statements SINUS RHYTHM POSSIBLE LEFT ATRIAL ENLARGEMENT [-0.1mV P-WAVE IN V1/V2] Compared to ECG 11/27/2020 13:03:48 Short NV interval no longer present Myocardial infarct finding no longer present Electronically Signed On 09-24-2021 20:18:39 CDT by Debbie Conti M.D. [id number]
--- NOTE | 2021-09-24 19:00 | W.ED.SOB ---
HPI - SOB/Dyspnea General: Chief Complaint: Shortness of Breath/Dyspnea Stated Complaint: sob Time Seen by Provider: 09/24/21 18:48 Source: patient Mode of arrival: ambulatory Limitations: no limitations History of Present Illness: HPI Narrative: 35-year-old female who states she had COVID last November she was on a vent she had sent home on home oxygen as well. States she is taken off her oxygen in April she states she had chronic shortness of breath since having COVID. She states with the heat recently she is had worsening shortness of breath especially with exertion states that with rest that she no longer has dyspnea she is scared that her oxygen was getting low and that she may need oxygen again. Denies any cough or fever. Associated symptoms: Deny abdominal pain, chest pain, fever(s), nausea or vomiting Review of Systems Const: Denies: fever(s), chills, body aches or change in appetite Eyes: Denies: blurry vision or eye discomfort ENMT: Denies: throat pain or dental pain Card: Denies: chest pain Resp: Reports: dyspnea and non-productive cough GI: Denies: abdominal pain, nausea, vomiting or diarrhea : Denies: dysuria Musc: Denies: neck pain or back pain Skin/Breast: Denies: rash Neuro: Denies: headache(s) Psych: Denies: depression [place]/Lymph: Denies: easy bruising All/Imm: Denies: urticaria PFSH ED PFSH: Medical History Bulimia nervosa in remission Chronic migraine without aura, intractable, with status migrainosus Excoriation (skin-picking) disorder Functional neurological symptom disorder with attacks or seizures History of COVID-19 Hypersomnia Major depressive disorder Migraine Obesity Obstructive sleep apnea Other regional intermodal truck driver (current) drug therapy Post-traumatic stress disorder, chronic Psychiatric care Sleepwalking disorder Suspected COVID-19 virus infection Viral URI with cough Surgical History H/O tubal ligation History of kidney surgery Family History Other CAD (coronary artery disease) Diabetes Hypertension Denies family history of Cancer Stroke Social History Smoking and tobacco status: never smoked Second hand smoke exposure: No Alcohol intake: never Desire information about alcohol rehabilitation?: No Desire information about substance/drug rehabilitation?: No Adopted: No Lives independently: Yes Household members: children Housing: Other Details: duplex Marital status: Number of children: 2 Highest education level completed: High School Graduate Current occupational status: disabled Pets and animals: No History of recent travel: No Leisure activites: other Leisure activities details: make up, social media, spending time with kids, outdoors, swimming Sexually active: No Current gender identity: Female Yareli/Religious: Anglican Special yareli needs: No Agree to transfusion: Yes Financial difficulty paying for basics: Not Very Hard Female Reproductive History: Para: 2 Spontaneous abortions: No Physical Exam Const: COMMON NORMALS: no acute distress, patient oriented x3 and healthy appearing HENMT: COMMON NORMALS: normocephalic and atraumatic HEAD & SCALP: normocephalic and atraumatic Eye: COMMON NORMALS: Equal, round and reactive pupils present and EOMs intact bilaterally PUPIL: Yes Equal, round and reactive pupils present Neck/C-Spine: COMMON NORMALS: full ROM and supple Chest: COMMONS NORMALS: normal inspection of the chest and normal palpation of entire chest wall Resp: COMMON NORMALS: normal respiratory effort, No retractions, No use of accessory muscles and clear to auscultation bilaterally AUSCULTATION: clear to auscultation bilaterally Cardio: COMMON NORMALS: regular rate, regular rhythm and No murmurs present (Cardio) RATE: regular rate RHYTHM: regular rhythm GI: COMMON NORMALS: Normal to inspection, nondistended, normoactive bowel sounds present, Soft to palpation, non-tender and no masses PALPATION: Yes Soft to palpation Extremity: COMMON NORMALS: normal to inspection and full ROM Neuro: COMMON NORMALS: patient oriented x3, moves all extremities and no focal motor deficits Psych: COMMON NORMALS: mental status grossly normal, Normal thought process present and cooperative THOUGHT PROCESS: Normal thought process present Skin: COMMON NORMALS: no rashes or lesions noted and no wounds GENERAL SKIN EXAM: no rashes or lesions noted Course Vital Signs: Vital signs: Vital Signs Temperature 97.6 F 09/24/21 18:36 Pulse Rate 110 H 09/24/21 18:36 Respiratory Rate 16 09/24/21 18:36 Blood Pressure 182/79 09/24/21 18:36 Pulse Oximetry 97 09/24/21 18:36 MDM - SOB/Dyspnea Medical Decision Making Patient presents here with shortness of breath is chronic in nature her oxygen saturation here has been 9799% blood work including D-dimer and chest x-ray are all normal she is stable for discharge we will prescribe her an inhaler she is to follow-up PCP and return if worsening Lab Data : 09/24/21 19:09 09/24/21 19:09 Labs/Radiology: Radiology Impressions Chest X-Ray 09/24/21 18:55 IMPRESSION: No acute cardiopulmonary abnormality. Laboratory Results WBC 12.1 10^3/uL (4.0-10.0) H 09/24/21 19:09 RBC 4.99 10^6/uL (4.1-5.3) 09/24/21 19:09 Hgb 14.9 g/dL (11.5-15.3) 09/24/21 19:09 Hct 46.1 % (37.0-47.0) 09/24/21 19:09 MCV 92.4 fl (81-99) 09/24/21 19:09 MCH 29.9 pg (28.0-34.0) 09/24/21 19:09 MCHC 32.3 g/dL (30.0-36.0) 09/24/21 19:09 RDW 13.2 % (12.1-15.1) 09/24/21 19:09 Plt Count 378 10^3/cmm (130-400) 09/24/21 19:09 MPV 9.9 fL (7.4-10.4) 09/24/21 19:09 Neut % (Auto) 58.9 % 09/24/21 19:09 Lymph % (Auto) 34.2 % 09/24/21 19:09 [place] % (Auto) 4.5 % 09/24/21 19:09 Eos % (Auto) 1.7 % 09/24/21 19:09 Baso % (Auto) 0.5 % 09/24/21 19:09 Neut # (Auto) 7.12 10^3/uL (1.8-7.7) 09/24/21 19:09 Lymph # (Auto) 4.1 10^3/uL (0.8-4.8) 09/24/21 19:09 [place] # (Auto) 0.5 10^3/uL (0.2-0.9) 09/24/21 19:09 Eos # (Auto) 0.2 10^3/uL (0.0-0.8) 09/24/21 19:09 Baso # (Auto) 0.1 10^3/uL (0.0-0.1) 09/24/21 19:09 Nucleated RBC % (auto) 0 % 09/24/21 19:09 Nucleated RBCs # 0.0 /100WBC 09/24/21 19:09 PT 12.80 SECONDS (12.1-14.9) 09/24/21 19:09 INR 0.93 (0.8-1.2) 09/24/21 19:09 D-Dimer 0.37 ug/mIFEU (0-0.59) 09/24/21 19:09 Sodium 132 mmol/L (136-145) L 09/24/21 19:09 Potassium 3.5 mmol/L (3.5-5.1) 09/24/21 19:09 Chloride 98 mmol/L (98-107) 09/24/21 19:09 Carbon Dioxide 27 mmol/L (22-29) 09/24/21 19:09 Anion Gap 10.5 (5-19) 09/24/21 19:09 BUN 8 mg/dL (6-20) 09/24/21 19:09 Creatinine 0.6 mg/dL (0.5-0.9) 09/24/21 19:09 GFR Calculation 113.1 mL/min (90-130) 09/24/21 19:09 Glucose 94 mg/dL (65-115) 09/24/21 19:09 Calculated Osmolality 272 mOsm/kg (285-295) L 09/24/21 19:09 Calcium 8.9 mg/dL (8.5-10.5) 09/24/21 19:09 Total Bilirubin 0.6 mg/dL (0.15-1.2) 09/24/21 19:09 AST 21 U/L (0-32) 09/24/21 19:09 ALT 26 U/L (0-33) 09/24/21 19:09 Alkaline Phosphatase 70 IU/L (35-105) 09/24/21 19:09 NT-Pro-B Natriuret Pep 28 pg/mL (0-125) 09/24/21 19:09 Total Protein 7.4 g/dL (6.6-8.7) 09/24/21 19:09 Albumin 4.0 g/dL (3.5-5.2) 09/24/21 19:09 Globulin 3.4 g/dL (1.3-4.6) 09/24/21 19:09 EKG Data EKG 1: I personally reviewed and interpreted this EKG as follows: EKG Interpretation Date: 09/24/21 EKG interpretation time: 19:09 Interpretation: nsr hr [address] or t wave abnormalities qrs 76 qtc 378 Discharge Plan Discharge Patient Disposition: Home Clinical Impression: Shortness of breath Condition: Stable Prescriptions: New albuterol sulfate 90 mcg/actuation HFA aerosol inhaler 2 inh INHALATION Q6H PRN (Reason: shortness of breath or wheezing) Qty: 8 1RF No Action duloxetine [Cymbalta] 60 mg capsule,delayed release(DR/EC) 60 mg PO DAILY Qty: 30 5RF clonazepam [Klonopin] 1 mg tablet 1 mg PO BID Qty: 60 5RF giergmrznd-iaodgdxxpdcfv-ilab 50-325-40 mg tablet 1 tab PO DAILY PRN (Reason: headache pain) 30 Days Qty: 30 0RF Rx Instructions: 90 day supply metformin 500 mg tablet extended release 24 hr 500 mg PO DAILY 90 Days Qty: 90 1RF montelukast [Singulair] 10 mg tablet 10 mg PO DAILY 90 Days Qty: 90 1RF tizanidine 2 mg tablet 2 mg PO TID PRN (Reason: muscle spasticity) Qty: 60 2RF tramadol 50 mg tablet 50 mg PO DAILY PRN (Reason: pain) 30 Days Qty: 15 0RF Rx Instructions: request refill in 30 days Discharge Orders: Discharge ED (Routine); Ordered 09/24/21 Ordered By: Angelita Moody Referrals: Alea Servin MD [Primary Care Provider] - 1-3 days Discharge Diet: Advance as tolerated Discharge Activity: Resume usual activity Patient Instructions: Dyspnea (ED) Coding Level of Care Code ED Boom Stick Worker for Chg Fwd Exam Comprehensive
[2021-09-24 19:17] LABS: Basophils # 0.1 10^3/uL (0.0-0.1); Basophils % 0.5 %; Eosinophils # 0.2 10^3/uL (0.0-0.8); Eosinophils % 1.7 %; Hematocrit 46.1 % (37.0-47.0); Hemoglobin 14.9 g/dL (11.5-15.3); Lymphocytes # 4.1 10^3/uL (0.8-4.8); Lymphocytes % 34.2 %; Mean Corpuscular HGB Conc 32.3 g/dL (30.0-36.0); Mean Corpuscular Hemoglobin 29.9 pg (28.0-34.0); Mean Corpuscular Volume 92.4 fl (81-99); Mean Platelet Volume 9.9 fL (7.4-10.4); Monocytes # 0.5 10^3/uL (0.2-0.9); Monocytes % 4.5 %; Neutrophils # 7.12 10^3/uL (1.8-7.7); Neutrophils % 58.9 %; Nucleated Red Blood Cells % 0 %; Platelet Count 378 10^3/cmm (130-400); Red Blood Count 4.99 10^6/uL (4.1-5.3); Red Cell Distribution Width 13.2 % (12.1-15.1); White Blood Count 12.1 10^3/uL (4.0-10.0)
[2021-09-24 19:27] LABS: INR 0.93 (0.8-1.2)
[2021-09-24 19:30] LABS: D Dimer 0.37 ug/mIFEU (0-0.59)
[2021-09-24 19:49] LABS: Alanine Aminotransferase 26 U/L (0-33); Alkaline Phosphatase 70 IU/L (35-105); Anion Gap 10.5 (5-19); Aspartate Amino Transferase 21 U/L (0-32); Blood Urea Nitrogen 8 mg/dL (6-20); Calcium 8.9 mg/dL (8.5-10.5); Carbon Dioxide 27 mmol/L (22-29); Chloride 98 mmol/L (98-107); Globulin 3.4 g/dL (1.3-4.6); Glomerular Filtration Rate 113.1 mL/min (90-130); Glucose 94 mg/dL (65-115); NT Pro B Type Natriuretic Pept 28 pg/mL (0-125); Osmolality Calculated 272 mOsm/kg (285-295); Potassium 3.5 mmol/L (3.5-5.1); Sodium 132 mmol/L (136-145); Total Bilirubin 0.6 mg/dL (0.15-1.2); Total Protein 7.4 g/dL (6.6-8.7)
[2021-09-24 20:34] VITALS: BP 155/102; PULSE 95; RESP 18; O2SAT 99
== END 2021-09-24 20:34 | disposition home or self-care (01) ==
PROVIDERS: Emergency Provider Emergency Medicine; PCP Family Medicine
DX: R06.02 Shortness of breath (principal); Z79.84 Long term (current) use of oral hypoglycemic drugs
CPT/HCPCS: 71045; 80053; 83880; 85025; 85378; 85610; 93005; 99285

== ENCOUNTER → 2021-10-05 14:22 | Outpatient (BNVA) | payer MEDICAID, SELFPAY ==
[2021-03-21 14:55] VITALS: BP 141/91; BMI 51.4
== END ==
PROVIDERS: PCP Family Medicine; Visit Provider Family Medicine
DX: E87.1 Hypo-osmolality and hyponatremia (principal); R00.0 Tachycardia, unspecified
CPT/HCPCS: 80048; 83735; 84443

== ENCOUNTER → 2021-11-10 12:37 | Outpatient (BNVA) | payer MEDICAID, SELFPAY ==
[2021-03-21 14:55] VITALS: BP 141/91; BMI 51.4
== END ==
PROVIDERS: PCP Family Medicine; Visit Provider Emergency Medicine
DX: M54.2 Cervicalgia (principal); M54.9 Dorsalgia, unspecified; M25.511 Pain in right shoulder
CPT/HCPCS: 72040; 72070; 72100

== ENCOUNTER 2021-12-16 15:03 | Outpatient (CLI) | payer MEDICAID, SELFPAY ==
[2021-03-21 14:55] VITALS: BP 141/91; BMI 51.4
--- NOTE | 2021-12-16 15:15 | USCV_ITS ---
Verito Harmon Age: 36 Gender: F : 1985 Exam Date: 12/16/2021 15:29 Ordering Phys: Alea Servin MD Technologist: Mala Bartlett [place] [facility] [place]: sob- post covid BP: / HR: 79 Rhythm: Sinus Technical Quality: Fair MEASUREMENTS (Male / Female) Normal Values 2D ECHO LV Diastolic Diameter PLAX 4.3 cm 4.2 - 5.9 / 3.9 - 5.3 cm LV Systolic Diameter PLAX 2.3 cm IVS Diastolic Thickness 1.1 cm 0.6 - 1.0 / 0.6 - 0.9 cm IVS Systolic Thickness 1.8 cm LVPW Diastolic Thickness 0.8 cm 0.6 - 1.0 / 0.6 - 0.9 cm LVPW Systolic Thickness 1.4 cm LVOT Diameter 2.0 cm LV Ejection Fraction 2D Teich 78.0 % LV Ejection Fraction MOD 2C 45.2 % LV Ejection Fraction 2C AL 46.3 % LA Diameter 2.3 cm LA Width 2.6 cm LA Height 3.8 cm RA Width 2.7 cm RA Height 3.8 cm Aorta at Sinotubular Diameter 2.5 cm IVC Diameter 1.3 cm M-MODE MV E Point Septal Separation 0.4 cm DOPPLER AV Peak Velocity 102.0 cm/s LVOT Peak Velocity 100.0 cm/s AV Area Cont Eq vti 3.0 cm squared AV Area Cont Eq pk 3.1 cm squared MV Peak Velocity 98.0 cm/s MV Area PHT 4.8 cm squared Mitral E to A Ratio 1.4 MV E' Velocity 55.0 cm/s Mitral E to MV E' Ratio 8.0 Mitral E to LV E' Lateral Ratio 7.5 Mitral E to LV E' Septal Ratio 8.7 TR Peak Velocity 184.0 cm/s TR Peak Gradient 13.5 mmHg Right Atrial Pressure 3.0 mmHg Pulmonary Artery Systolic Pressu 16.5 mmHg RV Acceleration Time 0.1 s RV Ejection Time 0.3 s RV AcT/ET 0.5 FINDINGS Left Ventricle Left ventricle is normal in size. LV systolic function is grossly normal. Regional wall motion abnormalities cannot be assessed because of poor ultrasonic windows. Right Ventricle Normal in size and function Right Atrium Normal in size Left Atrium Normal in size Mitral Valve Structurally normal mitral valve. No significant stenosis or regurgitation seen. Aortic Valve Grossly normal. No significant stenosis or regurgitation seen Tricuspid Valve Trace tricuspid regurgitation. Insufficient TR jet to calculate RVSP Pulmonic Valve Not well-visualized Pericardium Normal Aorta Normal in size IVC Appears to be normal CONCLUSIONS Technically limited quality echocardiogram because of poor ultrasonic windows. LV systolic function is grossly normal. Regional wall motion abnormalities cannot be assessed accurately because of poor ultrasonic windows Grossly normal valves. Trace tricuspid regurgitation Comparison with prior echocardiogram not possible because of limited quality echocardiogram. David Chavez MD (Electronically Signed) Final Date: 22 December 2021 19:05 S
== END 2021-12-16 15:04 | disposition home or self-care (01) ==
PROVIDERS: PCP Family Medicine; Visit Provider Family Medicine
DX: J96.11 Chronic respiratory failure with hypoxia; R00.0 Tachycardia, unspecified; R53.82 Chronic fatigue, unspecified; U09.9 Post COVID-19 condition, unspecified; I07.1 Rheumatic tricuspid insufficiency
CPT/HCPCS: 93306

== ENCOUNTER → 2022-04-19 15:01 | Outpatient (BNVA) | payer MEDICAID, SELFPAY ==
[2021-03-21 14:55] VITALS: BP 141/91; BMI 51.4
== END ==
PROVIDERS: PCP Family Medicine; Visit Provider Psychiatry & Neurology Neurology
DX: Z79.899 Other long term (current) drug therapy (principal)
CPT/HCPCS: 80061; 83036